=== PATIENT | female | born 1955 | race Caucasian/White ===

== ENCOUNTER 2018-07-18 10:00 | Outpatient (RCR) | payer MEDICARE, MEDICAID, SELFPAY | END 2018-07-18 10:01 | disposition home or self-care (01) | LOC: PT 10:00 | PROVIDERS: Visit Provider Nurse Practitioner Family | DX: L97.821 Non-pressure chronic ulcer of other part of left lower leg limited to breakdown of skin (principal); L97.811 Non-pressure chronic ulcer of other part of right lower leg limited to breakdown of skin | CPT/HCPCS: 97162 ==

== ENCOUNTER 2019-04-05 15:00 | Outpatient (RCR) | payer MEDICARE, MEDICAID, SELFPAY | END 2019-04-05 15:05 | disposition home or self-care (01) | LOC: PT 15:00 | PROVIDERS: Visit Provider Nurse Practitioner Family | DX: L97.221 Non-pressure chronic ulcer of left calf limited to breakdown of skin (principal); L97.222 Non-pressure chronic ulcer of left calf with fat layer exposed; E08.628 Diabetes mellitus due to underlying condition with other skin complications | CPT/HCPCS: 29580; 97161; 97597; 97598 ==

== ENCOUNTER → 2020-04-26 09:37 | Outpatient (CLI) | payer MEDICARE, MEDICAID, SELFPAY ==
[2020-04-26 11:45] LABS: Coronavirus 19 IgG Antibody Negative (Negative); Coronavirus 19 IgM Antibody Negative (Negative)
== END ==
PROVIDERS: Visit Provider Internal Medicine Gastroenterology
DX: Z01.818 Encounter for other preprocedural examination (principal)
CPT/HCPCS: 36415; 86328

== ENCOUNTER 2020-04-29 09:48 | Day surgery (SDC) | payer MEDICARE, MEDICAID, SELFPAY ==
[2020-04-24 11:10] VITALS: BMI 57.1
[2020-04-29 10:43] VITALS: BP 147/65; PULSE 67; RESP 18; TEMP 36.5; O2SAT 97
[2020-04-29 10:53] LABS: POC Glucose,Bedside 192 (70-110)
[2020-04-29 11:50] VITALS: O2SAT 97
--- NOTE | 2020-04-29 11:58 | P.PN_ITS ---
[facility] Anesthesia Checklist - Structural Data Admitted From: Home Planned Operative Procedure/s: colonoscopy Consent for Planned Operative Procedure(s) Verified: Yes - Airway Assessment C-Spine Mobility Assessed: Yes TMJ Mobility Assessed: Yes Dentition: Poor Dentition - Neurological Assessment Level of Consciousness: Awake, Alert, Appropriate - Anesthesia Plan Anesthesia Risk discussed: Yes Anesthesia Plan: Verified ASA Class: III Anesthesia Type: MAC [facility] History I have reviewed the patient's past medical history: Yes Medical History: Reports:: Cancer (urterine), Diabetes Mellitus Type 2 Denies:: Diabetes Mellitus Type 1, Internal Pacemaker, MRSA, Seizures *Have you ever received a pneumonia vaccine?: Yes *Have you received a flu vaccine this season?: Yes Anesthesia experience/problems:: none Other Surgeries: No: Pacemaker Amputation: No Fractures: No - *Social History Alcohol Intake: never Substance Use Type: denies use *Occupational Status:: retired Housing: house *Travel in the last 8 weeks: None Family Hx:: No significant family history
--- NOTE | 2020-04-29 12:15 | P.PCN_ITS ---
[facility] Procedure Note Procedure Note:: Colonoscopy Procedure Report: Colonoscopy Endoscopist: Kemar Cobb II, MD Referring physician: LORAINE Paniagua Date of Procedure: April 29, 2020 Equipment: Olympus 180 variable stiffness pediatric colonoscope Sedation: MAC sedation Indication: Mrs. Kim is a 65-year-old female who is here for diagnostic colonoscopy secondary to a positive Cologuard test. The patient does state that she had a normal colonoscopy within the last couple of years at [facility] (Dr. Lalo Tafoya). The patient reports no rectal bleeding or melena. She reports no abdominal pain, weight loss, change in her bowel habits or family history of colon cancer. Procedure: Prior to the procedure, a history and physical exam was performed, and patient's medications and allergies were reviewed. The risks, benefits and alternatives of the sedation and procedure were discussed with the patient. All questions were answered and informed consent was obtained. The patient was brought to the procedure room. Patient identification and proposed procedure were verified by the physician and the nurse. The patient was placed in a left lateral decubitus position and the scope was passed under direct vision. Throughout the procedure, the patient's blood pressure, pulse, and oxygen saturations were m onitored continuously. The colonoscopy was accomplished without difficulty. The patient tolerated the procedure well. Findings: On digital rectal examination there was normal rectal tone. There were no external hemorrhoids. The colonoscope was introduced through the anal canal to the rectum and advanced to the cecum. The ileocecal valve and appendiceal orifice were identified. The scope was advanced a short distance into the ileum which appeared grossly normal. The scope was then withdrawn into the colon. The cecum, ascending and transverse colon and mucosa were grossly normal. There were scattered diverticuli throughout the descending and sigmoid colon (LEFT colon). The rectum itself was normal. Upon retroflexion within the rectum there were grade 1 internal hemorrhoids. The preparation was excellent throughout with [place] Preparation Score of 9. The cecal time was 10 minutes. Impression: 1. Left-sided diverticulosis 2. Grade 1 internal hemorrhoids Plan: There was no etiology or explanation for positive Cologuard test. This was possibly a false positive test. The patient has no constitutional symptoms. The patient will not require screening/surveillance colonoscopy again for 10 years by ACS guidelines. I would encourage bulk fiber supplementation on a long-term daily maintenance basis.
[2020-04-29 12:20] VITALS: BP 117/67; PULSE 58; RESP 16; TEMP 36.2; O2SAT 93
[2020-04-29 12:30] VITALS: BP 107/60; PULSE 55; RESP 16; O2SAT 97
[2020-04-29 12:40] VITALS: BP 122/63; PULSE 58; RESP 16; O2SAT 99
[2020-04-29 12:50] VITALS: BP 128/88; PULSE 53; RESP 16; TEMP 36.3; O2SAT 98
== END 2020-04-29 12:57 | disposition home or self-care (01) ==
LOC: OUTP 09:52
PROVIDERS: PCP Nurse Practitioner Family; Visit Provider Internal Medicine Gastroenterology
PROC: 0DJD8ZZ Inspection of Lower Intestinal Tract, Via Natural or Artificial Opening Endoscopic (ICD-10-PCS; CPT 45378; principal; 2020-04-29 11:00)
DX: K57.30 Diverticulosis of large intestine without perforation or abscess without bleeding (principal); K64.0 First degree hemorrhoids; I10 Essential (primary) hypertension; E78.5 Hyperlipidemia, unspecified; G47.33 Obstructive sleep apnea (adult) (pediatric); F32.9 Major depressive disorder, single episode, unspecified; E11.9 Type 2 diabetes mellitus without complications; K21.9 Gastro-esophageal reflux disease without esophagitis; Z90.710 Acquired absence of both cervix and uterus; Z79.82 Long term (current) use of aspirin; Z79.4 Long term (current) use of insulin; Z79.899 Other long term (current) drug therapy
CPT/HCPCS: 45378; 82962

== ENCOUNTER 2021-05-15 15:30 | Outpatient (RCR) | payer MEDICARE, MEDICAID, SELFPAY | END 2021-05-15 15:35 | disposition home or self-care (01) | LOC: PT 15:30 | PROVIDERS: PCP Nurse Practitioner Family; Visit Provider Nurse Practitioner Family | DX: L03.116 Cellulitis of left lower limb (principal); L03.115 Cellulitis of right lower limb | CPT/HCPCS: 29580; 97162; 97597 ==

== ENCOUNTER 2021-08-15 22:28 | Emergency (ER) | payer MEDICARE, MEDICAID, SELFPAY ==
[2021-08-15 22:29] VITALS: BP 133/50; PULSE 71; RESP 16; TEMP 36.9; O2SAT 94; BMI 57.4
[2021-08-15 22:34] VITALS: BP 133/58; PULSE 81; O2SAT 95
[2021-08-15 22:58] LABS: Basophils # 0.1 K/mm3 (0-0.2); Basophils % 0.7 % (0.1-2.0); Eosinophils # 0.4 K/mm3 (0.0-0.4); Eosinophils % 2.7 % (0.1-12.0); Hematocrit 34.5 % (37.0-47.0); Hemoglobin 11.1 g/dL (12.2-16.2); Lymphocytes % 23.4 % (10-50); Mean Corpuscular Hemoglobin 26.3 pg (27.0-31.2); Mean Platelet Volume 8.9 fl (7.4-10.4); Monocytes # 0.6 K/mm3 (0.1-1.0); Monocytes % 4.5 % (1.7-9.3); Neutrophils # 8.9 K/mm3 (1.8-7.8); Neutrophils % 68.7 % (37.0-80.0); Platelet Count 390 K/mm3 (142-424); Red Blood Count 4.21 M/mm3 (4.20-5.40); Red Cell Distribution Width 16.4 % (11.5-17.5); White Blood Count 12.9 K/mm3 (4.8-10.8)
[2021-08-15 23:05] LABS: Alanine Aminotransferase 16 U/L (12-78); Albumin Level 3.9 g/dl (3.5-5.0); Albumin/Globulin Ratio 1.1 (1.1-1.8); Alkaline Phosphatase 88 U/L (38-126); Amylase 68 U/L (30-110); Anion Gap 14.7 mEq/L (5-15); Aspartate Amino Transferase 30 U/L (14-36); Bilirubin,Total 0.2 mg/dl (0.2-1.3); Blood Urea Nitrogen 27 mg/dl (7-17); Calcium 8.7 mg/dl (8.4-10.2); Carbon Dioxide 22 mmol/L (22.0-30.0); Chloride 97 mmol/L (98-107); Creatinine Clearance Estimated 29 mL/min (50-200); Estimated Glomerular Filt Rate 30 ml/min (>60); GFR (African American) 36 ML/MIN (>60); Globulin 3.4 g/dL (1.3-3.2); Glucose 77 mg/dl (74-100); Lipase 73 U/L (23-300); Potassium 3.7 mmoL/L (3.5-5.1); Sodium 130 mmol/L (136-145); Total Protein,Serum 7.3 g/dl (6.3-8.2)
[2021-08-15 23:11] LABS: C-Reactive Protein 40.3 mg/L (0-4)
[2021-08-15 23:24] LABS: Procalcitonin 0.077 ng/mL (0.0-2.0)
[2021-08-15 23:27] LABS: Erythrocyte Sedimentation Rate 65 mm/hr (0-30)
--- NOTE | 2021-08-15 23:44 | HMH.EDWEAK ---
ED Disposition Clinical Impression: Gastroenteritis, Renal insufficiency Disposition: Home, Self-Care Condition on Discharge: Good Instructions: DI for Vomiting -- Adult Additional Instructions: fluids and hold lasix/k and lisinopril at this time till bette fluids Referrals: May Deal [Primary Care Provider] - - Critical Care Critical Care Time: No Attestation: On 08/15/21, the high probability of a clinically significant, sudden or life threatening deterioration of the following system(s) required my full and direct attention, intervention and personal management. The time I documented below is in addition to time spent performing reported procedures but includes the following listed in this critical care notation. Medical Decision Making - Medical Records Medical records reviewed: Yes: I reviewed the patient's medical records. - Jose C Inquiry Pt receiving controlled substance: No Vital Signs: 08/15/21 22:29 08/15/21 22:34 Temperature 98.4 F Temperature Source Oral Pulse Rate 81 Pulse Rate [Right] 71 Respiratory Rate 16 Blood Pressure 133/58 L Blood Pressure [Right Arm] 133/50 L Blood Pressure Mean [Right Arm] 77 02 Sat by Pulse Oximetry 94 L 95 - Lab Data Lab results reviewed: Yes: I reviewed the patient's lab results. Lab Results 08/15/21 00:00: Urine Color Yellow, Urine Appearance Sl cloudy, Urine pH 5.5, Ur Specific [place] 1.020, Urine Protein Negative, Urine Glucose (UA) Negative, Urine Ketones Negative, Urine Blood Negative, Urine Nitrate Negative, Urine Bilirubin Negative, Urine Urobilinogen 0.2, Ur Leukocyte Esterase Negative, Urine RBC Occasional, Urine WBC 5-10, Ur Squamous Epith Cells None, Urine Bacteria Trace 08/15/21 22:50: WBC 12.9 H, RBC 4.21, Hgb 11.1 L, Hct 34.5 L, MCV 82.0, MCH 26.3 L, MCHC 32.0, RDW 16.4, Plt Count 390, MPV 8.9, Neut % (Auto) 68.7, Lymph % (Auto) 23.4, [place] % (Auto) 4.5, Eos % (Auto) 2.7, Baso % (Auto) 0.7, Neut # (Auto) 8.9 H, Lymph # (Auto) 3.0, [place] # (Auto) 0.6, Eos # (Auto) 0.4, Baso # (Auto) 0.1, ESR 65 H 08/15/21 22:50: Sodium 130 L, Potassium 3.7, Chloride 97 L, Carbon Dioxide 22, Anion Gap 14.7, BUN 27 H, Creatinine 1.70 H, Estimated Creat Clear 29, Estimated GFR 30 L, Est GFR ( Amer) 36 L, Glucose 77, Calcium 8.7, Total Bilirubin 0.2, AST 30, ALT 16, Alkaline Phosphatase 88, C-Reactive Protein 40.3 H, Total Protein 7.3, Albumin 3.9, Globulin 3.4 H, Albumin/Globulin Ratio 1.1, Amylase 68, Procalcitonin 0.077 08/15/21 22:50: Lipase 73 Result diagrams: 08/15/21 22:50 08/15/21 22:50 Orders (Tests/Meds): ED MEDICATIONS Generic Name Dose Route Start Last Admin Trade Name Freq PRN Reason Stop Dose Admin Sodium Chloride 1,000 mls @ 999 mls/hr 08/15/21 23:45 08/15/21 23:53 Sod Chlor 0.9% 1000ml Bag IV 08/16/21 00:45 999 mls/hr .Q1H1M TE Administration - Reevaluation(s) Time: 02:10 Reevaluation #1: improved with fluids Medical Decision Narrative: has gastroenteritis which has improved but concerned about urine output - candelaria was placed no urine retention but good u/o with fluids - will ask pt to hold lasix/k and lisinopril till back to baseline Weakness HPI - General Chief complaint: Weakness Stated complaint: Diarrhea,Abd pain.weakness Time Seen by Provider: 08/15/21 23:15 Mode of Arrival: Ambulatory Source of Information: Patient, Medical Record Limitations: No Limitations Description of Symptoms (Recalled from ER Triage Doc. by RN): pt states since wednesday has n/v/d, today is the first day without any of those symptoms but now is weak and unable to urinate - History of Present Illness HPI Narrative: pt with n/v and diarrhea over the last few days reports better today but concerned about dec u/o Complaint: generalized weakness Onset (ago): day(s) Location: generalized Migration: none Severity: moderate Associated symptoms: denies other symptoms - Related Data Home Medications Medication
[2021-08-16 00:05] LABS: Microscopic, Urine URINE MICROSCOPIC (MICROSCOPIC)
[2021-08-16 00:12] LABS: Appearance,Urine SL CLOUDY (Clear); Bilirubin,Urine Negative (Negative); Blood, Urine Negative (Negative); Color,Urine YELLOW (Yellow); Glucose,Urine (UA) Negative (Negative); Ketones,Urine Negative (Negative); Leukocyte Esterase,Urine Negative (Negative); Nitrate,Urine Negative (Negative); PH,Urine 5.5 (5.0-8.5); Protein,Urine Negative (Negative); Urobilinogen,Urine 0.2 EU/dl (0.2)
[2021-08-16 00:16] LABS: Bacteria,Urine Trace /lpf; RBC,Urine Occasional #/hpf (0-3)
[2021-08-16 02:22] VITALS: BP 116/61; PULSE 73; RESP 18; TEMP 37.2; O2SAT 99
== END 2021-08-16 02:29 | disposition home or self-care (01) ==
PROVIDERS: Emergency Provider Emergency Medicine; PCP Nurse Practitioner Family
DX: K52.9 Noninfective gastroenteritis and colitis, unspecified (principal); N28.9 Disorder of kidney and ureter, unspecified; E11.9 Type 2 diabetes mellitus without complications; K21.9 Gastro-esophageal reflux disease without esophagitis; I10 Essential (primary) hypertension; E78.5 Hyperlipidemia, unspecified
CPT/HCPCS: 80053; 81001; 82150; 83690; 84145; 85025; 85651; 86140; 96365; 99283

== ENCOUNTER 2022-01-13 11:54 | Emergency (ER) | payer MEDICARE, MEDICAID, SELFPAY ==
[2022-01-13] VITALS (11 sets, daily range): BP systolic 121–172; BP diastolic 57–85; PULSE 58–72; RESP 12–21; TEMP 36.4; O2SAT 95–98; BMI 53.1
--- NOTE | 2022-01-13 12:05 | ECG_ITS ---
APPROVED REPORT Exam: Resting ECG HR:70 bpm ECG Measurements Heart Rate 70 AXES QRSd 94 QRS 40 QT 400 T 0 QTc 420 Conclusion ATRIAL FIBRILLATION LOW QRS VOLTAGE IN PRECORDIAL LEADS [QRS DEFLECTION < 1.0 mV IN CHEST LEADS] NONSPECIFIC ST & T-WAVE ABNORMALITY ABNORMAL RHYTHM ECG UNCONFIRMED REPORT Electronically signed by : Hernan Muniz MD 01/14/2022 18:03:31
--- NOTE | 2022-01-13 12:22 | CT_ITS ---
FINAL REPORT CLINICAL HISTORY: rt leg weakness, blurry viz, confudsion FINDINGS: Axial images of the head were obtained without contrast. Coronal reformatted images were also obtained.This study was performed with techniques to keep radiation doses as low as reasonably achievable (ALARA). Individualized dose reduction techniques using automated exposure control or adjustment of mA and/or kV according to the patient''s size were employed. There is a 17 mm left thalamic hemorrhage with mild surrounding edema. There is 4 mm onwq-pe-xglur shift. Periventricular low-attenuation areas are seen consistent with mild chronic ischemic changes. No skull abnormality is seen on the bone window images. IMPRESSION: 17 mm left thalamic hemorrhage with mild surrounding edema and 4 mm of hvke-hk-oijmj shift. Dr. Conley was notified of these findings at 1:17 PM on 01/13/2022 Reviewed, Interpreted and Dictated by Mendoza Viveros III, MD Transcribed by Gwen Waekfield Authenticated by Mendoza Viveros III, MD on 01/13/2022 01:41:[address] [facility]
--- NOTE | 2022-01-13 12:25 | HMH.EDNEU ---
ED Disposition Clinical Impression: ICH (intracerebral hemorrhage) Qualifiers: Intracerebral hemorrhage etiology: nontraumatic Cerebral hemorrhage location: other cerebral location Laterality: left Qualified Code(s): I61.8 - Other nontraumatic intracerebral hemorrhage Disposition: Xfer Short-Term Hosp Condition on Discharge: Good Referrals: May Deal [Primary Care Provider] - - Critical Care Critical Care Time: No Attestation: On 01/13/22, the high probability of a clinically significant, sudden or life threatening deterioration of the following system(s) required my full and direct attention, intervention and personal management. The time I documented below is in addition to time spent performing reported procedures but includes the following listed in this critical care notation. Medical Decision Making - Medical Records Medical records reviewed: Yes: I reviewed the patient's medical records. - Jose C Inquiry Pt receiving controlled substance: No Vital Signs: 01/13/22 11:55 01/13/22 12:31 01/13/22 13:00 Temperature 97.5 F L Temperature Source Oral Pulse Rate 67 65 Pulse Rate [Left Radial] 71 Respiratory Rate 20 16 21 Blood Pressure 160/71 H 145/70 H Blood Pressure [Right Arm] 172/79 H Blood Pressure Mean 92 95 Blood Pressure Mean [Right Arm] 110 Blood Pressure Source [Right Arm] Automatic Cuff Blood Pressure Position [Right Arm] Sitting 02 Sat by Pulse Oximetry 97 97 97 Oxygen Delivery Method Room Air 01/13/22 14:01 01/13/22 14:30 01/13/22 15:00 Temperature Temperature Source Pulse Rate 72 62 63 Pulse Rate [Left Radial] Respiratory Rate 16 18 18 Blood Pressure 121/63 134/57 L 135/85 Blood Pressure [Right Arm] Blood Pressure Mean 101 82 101 Blood Pressure Mean [Right Arm] Blood Pressure Source [Right Arm] Blood Pressure Position [Right Arm] 02 Sat by Pulse Oximetry 95 95 96 Oxygen Delivery Method Room Air Room Air Room Air 01/13/22 16:31 01/13/22 17:15 01/13/22 17:57 Temperature Temperature Source Pulse Rate 61 58 L 62 Pulse Rate [Left Radial] Respiratory Rate 21 12 18 Blood Pressure 136/71 136/81 150/70 H Blood Pressure [Right Arm] Blood Pressure Mean 92 96 Blood Pressure Mean [Right Arm] Blood Pressure Source [Right Arm] Blood Pressure Position [Right Arm] 02 Sat by Pulse Oximetry 96 97 96 Oxygen Delivery Method 01/13/22 18:02 Temperature Temperature Source Pulse Rate 64 Pulse Rate [Left Radial] Respiratory Rate 18 Blood Pressure 153/66 H Blood Pressure [Right Arm] Blood Pressure Mean 95 Blood Pressure Mean [Right Arm] Blood Pressure Source [Right Arm] Blood Pressure Position [Right Arm] 02 Sat by Pulse Oximetry 98 Oxygen Delivery Method - Lab Data Lab Results 01/13/22 12:15: WBC 10.5, RBC 4.29, Hgb 10.6 L, Hct 34.3 L, MCV 80.0 L, MCH 24.7 L, MCHC 30.9 L, RDW 16.9, Plt Count 438 H, MPV 9.2, Neut % (Auto) 69.8, Lymph % (Auto) 19.0, [place] % (Auto) 5.9, Eos % (Auto) 3.8, Baso % (Auto) 1.5, Neut # (Auto) 7.3, Lymph # (Auto) 2.0, [place] # (Auto) 0.6, Eos # (Auto) 0.4, Baso # (Auto) 0.2 01/13/22 12:15: Sodium 141, Potassium 3.4 L, Chloride 104, Carbon Dioxide 28, Anion Gap 12.4, BUN 17, Creatinine 0.80, Estimated GFR 72, Est GFR ( Amer) 87, Glucose 48 L, Calcium 9.3, Total Bilirubin 0.7, AST 44 H, ALT 25, Alkaline Phosphatase 68, Total Protein 7.8, Albumin 4.1, Globulin 3.7 H, Albumin/Globulin Ratio 1.1 01/13/22 13:03: POC Glucose 107 01/13/22 14:55: SARS-CoV-2 (PCR) Not detected, Influenza A Untype (PCR) Not detected, Influenza Type B (PCR) Not detected 01/13/22 15:19: Urine Color Yellow, Urine Appearance Sl cloudy, Urine pH 6.0, Ur Specific [place] 1.010, Urine Protein Negative, Urine Glucose (UA) Negative, Urine Ketones Negative, Urine Blood Negative, Urine Nitrate Negative, Urine Bilirubin Negative, Urine Urobilinogen 0.2, Ur Leukocyte Esterase Negative, Urine RBC Occasional, Urine WBC 5-10, Ur [place]
[2022-01-13 12:32] LABS: Basophils # 0.2 K/mm3 (0-0.2); Basophils % 1.5 % (0.1-2.0); Eosinophils # 0.4 K/mm3 (0.0-0.4); Eosinophils % 3.8 % (0.1-12.0); Hematocrit 34.3 % (37.0-47.0); Hemoglobin 10.6 g/dL (12.2-16.2); Mean Corpuscular HGB Conc 30.9 g/dL (31.8-35.4); Mean Corpuscular Hemoglobin 24.7 pg (27.0-31.2); Mean Platelet Volume 9.2 fl (7.4-10.4); Monocytes # 0.6 K/mm3 (0.1-1.0); Monocytes % 5.9 % (1.7-9.3); Neutrophils # 7.3 K/mm3 (1.8-7.8); Neutrophils % 69.8 % (37.0-80.0); Platelet Count 438 K/mm3 (142-424); Red Blood Count 4.29 M/mm3 (4.20-5.40); Red Cell Distribution Width 16.9 % (11.5-17.5); White Blood Count 10.5 K/mm3 (4.8-10.8)
[2022-01-13 12:43] LABS: Alanine Aminotransferase 25 U/L (12-78); Albumin Level 4.1 g/dl (3.5-5.0); Albumin/Globulin Ratio 1.1 (1.1-1.8); Alkaline Phosphatase 68 U/L (38-126); Anion Gap 12.4 mEq/L (5-15); Aspartate Amino Transferase 44 U/L (14-36); Bilirubin,Total 0.7 mg/dl (0.2-1.3); Blood Urea Nitrogen 17 mg/dl (7-17); Calcium 9.3 mg/dl (8.4-10.2); Carbon Dioxide 28 mmol/L (22.0-30.0); Chloride 104 mmol/L (98-107); Estimated Glomerular Filt Rate 72 ml/min (>60); GFR (African American) 87 ML/MIN (>60); Globulin 3.7 g/dL (1.3-3.2); Potassium 3.4 mmoL/L (3.5-5.1); Sodium 141 mmol/L (136-145); Total Protein,Serum 7.8 g/dl (6.3-8.2)
--- NOTE | 2022-01-13 13:03 | PC.NURSE ---
spoke with MRI they are gonna come after her
--- NOTE | 2022-01-13 13:04 | PC.NURSE ---
repeat fsbs 107
[2022-01-13 13:09] LABS: Glucose 48 mg/dl (74-100)
[2022-01-13 13:10] LABS: POC Glucose,Bedside 107 (70-110)
--- NOTE | 2022-01-13 13:11 | PC.NURSE ---
Pt given PB and crackers with DtMariela
--- NOTE | 2022-01-13 13:15 | PC.NURSE ---
pt to MRI via wheelchair
--- NOTE | 2022-01-13 13:17 | PC.NURSE ---
ER speaking with radiologist at this time
--- NOTE | 2022-01-13 13:22 | PC.NURSE ---
per ER MD request contacting MRI area asked them to bring pt back down and not do MRI r/t pt CT finding, spoke with Felicita
--- NOTE | 2022-01-13 13:22 | PC.NURSE ---
contacting [facility]
--- NOTE | 2022-01-13 13:26 | PC.NURSE ---
Dr Conley speaking with Dr [facility]
--- NOTE | 2022-01-13 13:50 | PC.NURSE ---
ISA NICOLE reports [facility] declined to accept pt in transfer.
--- NOTE | 2022-01-13 14:03 | PC.NURSE ---
calling [facility] for transfer
--- NOTE | 2022-01-13 14:05 | PC.NURSE ---
Dr Conley speaking with stroke navigator.
--- NOTE | 2022-01-13 14:17 | PC.NURSE ---
Dr Shetty to call back from [facility]
--- NOTE | 2022-01-13 14:42 | MR_ITS ---
FINAL REPORT CLINICAL HISTORY: rt leg weakness, confusion, blurry viz FINDINGS: Multiple projection images of the brain arterial vasculature were obtained without contrast. The raw data images were also reviewed. The distal internal carotid, distal vertebral and basilar arteries have an unremarkable appearance without evidence of significant stenosis or occlusion. The proximal anterior, middle and posterior cerebral arteries have an unremarkable appearance. There is no evidence of significant stenosis or major branch occlusion. No aneurysm or vascular malformation is identified. IMPRESSION: Unremarkable MR angiogram of the head. Reviewed, Interpreted and Dictated by Mendoza Vvieros III, MD Transcribed by Gwen Wakefield Authenticated by Mendoza Viveros III, MD on 01/13/2022 04:41:24 PM [facility]
--- NOTE | 2022-01-13 14:49 | PC.NURSE ---
speaking with [facility]
[2022-01-13 14:57] LABS: Coronavirus 19, PCR Not Detected (NotDetected); Influenza A, PCR Not Detected (NotDetected); Influenza B, PCR Not Detected (NotDetected)
--- NOTE | 2022-01-13 15:02 | PC.NURSE ---
speaking to [facility]
--- NOTE | 2022-01-13 15:14 | PC.NURSE ---
pt to MRI via wheelchair at this time
--- NOTE | 2022-01-13 15:21 | MR_ITS ---
FINAL REPORT CLINICAL HISTORY: rt leg weakness, confusion, blurry viz COMPARISON: CT from the same day FINDINGS: Multiplanar MR imaging of the brain was performed without contrast. Motion on some of the images decreases exam sensitivity. There is mild age-appropriate atrophy. There are multiple foci of increased T2 signal in the cerebral white matter that have a nonspecific appearance but likely represent moderate chronic ischemic/gliotic changes. There is enlargement of the left thalamus up to 3.0 x 2.2 cm with increased T2 signal within it. It is unclear if this represents edema or a mass. There is a central area of acute hemorrhage within this focus. No abnormal ventricular dilatation is identified. No abnormal extra-axial fluid collection is seen. The posterior fossa and brainstem are unremarkable. Normal major vessel vascular flow voids are seen. IMPRESSION: Enlargement of the left thalamus could represent edema or a mass . This contains a central area of acute hemorrhage. Follow-up MRI without and with contrast may be helpful. Age-appropriate atrophy and moderate chronic ischemic/gliotic changes. Reviewed, Interpreted and Dictated by Mendoza Viveros III, MD Transcribed by Moses Mcleod Authenticated by Mendoza Viveros III, MD on 01/13/2022 04:55:09 PM [facility]
[2022-01-13 15:25] LABS: Microscopic, Urine URINE MICROSCOPIC (MICROSCOPIC)
--- NOTE | 2022-01-13 15:27 | PC.NURSE ---
spoke with [facility] at this time, requesting a face sheet, states they will work on a bed for pt.
--- NOTE | 2022-01-13 15:32 | PC.NURSE ---
contacted pharmacy to have them mix nicardipine drip for pt, ER MD has parameters to keep sbp less than 140, will have drip ready if need to start it on pt.
[2022-01-13 15:39] LABS: Appearance,Urine SL CLOUDY (Clear); Bilirubin,Urine Negative (Negative); Blood, Urine Negative (Negative); Color,Urine YELLOW (Yellow); Glucose,Urine (UA) Negative (Negative); Ketones,Urine Negative (Negative); Leukocyte Esterase,Urine Negative (Negative); Nitrate,Urine Negative (Negative); Protein,Urine Negative (Negative); Urobilinogen,Urine 0.2 EU/dl (0.2)
--- NOTE | 2022-01-13 16:21 | PC.NURSE ---
patient returned from MRI
--- NOTE | 2022-01-13 16:35 | PC.NURSE ---
Called for pt meal tray
[2022-01-13 16:40] LABS: POC Glucose,Bedside 104 (70-110)
--- NOTE | 2022-01-13 17:09 | PC.NURSE ---
[facility] called advising they still have no rooms at this time.
[2022-01-13 17:12] LABS: Bacteria,Urine 4+ /lpf; RBC,Urine Occasional #/hpf (0-3)
--- NOTE | 2022-01-13 17:16 | PC.NURSE ---
notified ER pt MRI brain has been read and is in the system.
--- NOTE | 2022-01-13 17:16 | PC.NURSE ---
PT resting in bed, eating supper tray at this time. No issues
--- NOTE | 2022-01-13 18:47 | PC.NURSE ---
[facility] called with a bed, they are busy with a code and will do report at shift change
--- NOTE | 2022-01-13 18:47 | PC.NURSE ---
Attempted to call report on pt, nurse at [facility] states they are trying to catch up from a prior code at their facility and wants to return a call back to them once shift nurse manager gets there
[2022-01-13 18:57] LABS: POC Glucose,Bedside 176 (70-110)
--- NOTE | 2022-01-13 19:07 | PC.NURSE ---
CAlled back to give report, Zoila states that the HS said to hold off for 30mins/1hour for this pt a bed to open due to unseen circumstances that happened in their facility.
--- NOTE | 2022-01-13 19:27 | PC.NURSE ---
Updated family and pt and poc
--- NOTE | 2022-01-13 20:02 | PC.NURSE ---
[facility] NOTIFIED OF PATIENT READY FOR TRANSFER
== END 2022-01-13 20:24 | disposition short-term general hospital (02) ==
PROVIDERS: Emergency Provider Emergency Medicine; PCP Nurse Practitioner Family
DX: I61.8 Other nontraumatic intracerebral hemorrhage (principal); A49.8 Other bacterial infections of unspecified site; H53.8 Other visual disturbances; R41.0 Disorientation, unspecified; Z20.822 Contact with and (suspected) exposure to COVID-19; I10 Essential (primary) hypertension; K21.9 Gastro-esophageal reflux disease without esophagitis; E78.5 Hyperlipidemia, unspecified; E11.9 Type 2 diabetes mellitus without complications; F32.A Depression, unspecified; F41.9 Anxiety disorder, unspecified; Z79.1 Long term (current) use of non-steroidal anti-inflammatories (NSAID); Z79.4 Long term (current) use of insulin; Z79.82 Long term (current) use of aspirin; Z79.899 Other long term (current) drug therapy; Z88.0 Allergy status to penicillin; R53.1 Weakness; Z85.9 Personal history of malignant neoplasm, unspecified
CPT/HCPCS: 70450; 70544; 70551; 80053; 81001; 82962; 85025; 87086; 87088; 87186; 93005; 96365; 96374; 99285; C9803; U0003; U0005

== ENCOUNTER 2022-05-23 21:48 | Inpatient (IN) | payer MEDICARE, MEDICAID, SELFPAY ==
[2022-05-23 21:46] VITALS: BP 125/56; PULSE 96; RESP 22; TEMP 36.6; O2SAT 95; BMI 55.7
[2022-05-23 23:00] VITALS: PULSE 97; O2SAT 94
--- NOTE | 2022-05-23 23:10 | XR_ITS ---
PROCEDURE INFORMATION: Exam: XR Pelvis Exam date and time: 05/23/2022 11:43 PM Age: 67 years old Clinical indication: Injury or trauma; Fall; Blunt trauma (contusions or hematomas); Bilateral; Pelvic region TECHNIQUE: Imaging protocol: Radiologic exam of the pelvis. Views: 1 or 2 view. Total images: 2 COMPARISON: No relevant prior studies available. FINDINGS: Bones/joints: Unremarkable. No acute fracture. Soft tissues: Unremarkable. Vasculature: Atherosclerosis is evident. Other findings: Incidental pelvic phlebolith formation. IMPRESSION: No acute fracture identified.
--- NOTE | 2022-05-23 23:10 | CT_ITS ---
PROCEDURE INFORMATION: Exam: CT Abdomen And Pelvis Without Contrast Exam date and time: 05/24/2022 12:03 AM Age: 67 years old Clinical indication: Abdominal pain; Generalized; Additional info: Fall 1 mn ago, back abd pain TECHNIQUE: Imaging protocol: Computed tomography of the abdomen and pelvis without contrast. Total images: 224 Radiation optimization: All CT scans at this facility use at least one of these dose optimization techniques: automated exposure control; mA and/or kV adjustment per patient size (includes targeted exams where dose is matched to clinical indication); or iterative reconstruction. COMPARISON: CR XR PELVIS 1-2V 05/23/2022 11:43 PM FINDINGS: Limitations: Quality of examination is limited by body habitus. Streak artifact related to the positioning of the patient's arms. Lungs: Bibasilar mosaic attenuation of the pulmonary parenchyma, suggesting small airway infectious/inflammatory process. Coronary arteries: Calcific coronary artery disease is evident. Liver: Suspect hepatic steatosis. Hepatomegaly at 22 cm craniocaudal dimension. Gallbladder and bile ducts: Suspect prior cholecystectomy. Pancreas: Normal. No ductal dilation. Spleen: Normal. No splenomegaly. Adrenal glands: There is multilobulated benign adenomatous enlargement of the adrenal glands, no further followup recommended. Kidneys and ureters: Normal. No hydronephrosis. Stomach and bowel: Unremarkable. No obstruction. No mucosal thickening. Appendix: Normal appendix. Intraperitoneal space: Unremarkable. No free air. No significant fluid collection. Vasculature: Unremarkable. No abdominal aortic aneurysm. Lymph nodes: Unremarkable. No enlarged lymph nodes. Urinary bladder: Unremarkable as visualized. Reproductive: Unremarkable as visualized. Bones/joints: Moderate spinal degenerative changes. Facet joint degenerative changes are present. Multifocal neural foraminal stenosis, due to degeneration. Soft tissues: Soft tissue prominence adjacent to the pubic symphysis with a small amount of gas in this region, presumably advanced degeneration with infection conceivable but felt much less likely. IMPRESSION: 1. Soft tissue prominence adjacent to the pubic symphysis with a small amount of gas in this region, presumably advanced degeneration with infection conceivable but felt much less likely. Recommend clinical correlation. 2. No acute intra-abdominal process identified. 3. Bibasilar mosaic attenuation of the pulmonary parenchyma, suggesting small airway infectious/inflammatory process. 4. No ureteral stone or hydronephrosis. 5. Normal appendix.
--- NOTE | 2022-05-23 23:10 | XR_ITS ---
PROCEDURE INFORMATION: Exam: XR Chest Exam date and time: 05/23/2022 11:44 PM Age: 67 years old Clinical indication: Sternal or substernal pain; Additional info: Fall TECHNIQUE: Imaging protocol: Radiologic exam of the chest. Views: 4 or more views. Total images: 593 COMPARISON: No relevant prior studies available. FINDINGS: Lungs: Benign granulomatous disease of the lung is noted. Trace pulmonary vascular congestion. Pleural spaces: Unremarkable. No pleural effusion. No pneumothorax. Heart/Mediastinum: Unremarkable. No cardiomegaly. Diaphragm: There is nonspecific elevation of the right hemidiaphragm. Bones/joints: Questionable oblique lucency of the lateral right 10th rib, potentially a minimally displaced acute fracture. IMPRESSION: 1. Trace pulmonary vascular congestion. 2. Questionable oblique lucency of the lateral right 10th rib, potentially a minimally displaced acute fracture. Recommend correlation for focal tenderness.
--- NOTE | 2022-05-23 23:10 | CT_ITS ---
PROCEDURE INFORMATION: Exam: CT Lumbar Spine Without Contrast Exam date and time: 05/23/2022 11:55 PM Age: 67 years old Clinical indication: Injury or trauma; Fall; Sprain or strain, lumbar ligaments; Additional info: Fall 1 mn ago, back abd pain TECHNIQUE: Imaging protocol: Computed tomography of the lumbar spine without contrast. Total images: 2 Radiation optimization: All CT scans at this facility use at least one of these dose optimization techniques: automated exposure control; mA and/or kV adjustment per patient size (includes targeted exams where dose is matched to clinical indication); or iterative reconstruction. COMPARISON: CR XR PELVIS 1-2V 05/23/2022 11:43 PM FINDINGS: Bones/joints: Facet joint degenerative changes are present. Osseous demineralization is evident. Discs/Spinal canal/Neural foramina: Multifocal neural foraminal stenosis, due to degeneration. Vasculature: Atherosclerosis is evident. Soft tissues: Unremarkable. IMPRESSION: No acute lumbar spine fracture.
[2022-05-23 23:18] VITALS: BP 153/79; PULSE 99; O2SAT 94
--- NOTE | 2022-05-23 23:21 | HMH.EDGENADL ---
ED Disposition Clinical Impression: Type 2 diabetes mellitus with diabetic neuropathy, with long-term current use of insulin, Severe sepsis with acute organ dysfunction, Renal insufficiency, Gait abnormality UTI (urinary tract infection) Qualifiers: Urinary tract infection type: site unspecified Hematuria presence: without hematuria Qualified Code(s): N39.0 - Urinary tract infection, site not specified Acute knee pain Qualifiers: Laterality: right Qualified Code(s): M25.561 - Pain in right knee Obesity Qualifiers: Obesity type: due to excess calories Obesity classification: adult class 3 (BMI >= 40) Serious obesity comorbidity presence: with serious comorbidity Body mass index: BMI 50.0-59.9 Qualified Code(s): E66.01 - Morbid (severe) obesity due to excess calories; Z68.43 - Body mass index [BMI] 50.0-59.9, adult A-fib Qualifiers: Atrial fibrillation type: unspecified chronic Qualified Code(s): I48.20 - Chronic atrial fibrillation, unspecified Anemia Qualifiers: Anemia type: unspecified type Qualified Code(s): D64.9 - Anemia, unspecified Cellulitis Qualifiers: Site of cellulitis: extremity Site of cellulitis of extremity: lower extremity Laterality: unspecified laterality Qualified Code(s): L03.119 - Cellulitis of unspecified part of limb Disposition: Admitted as Observation Condition on Discharge: Fair Referrals: Provider,Referral, [Primary Care Provider] - - Critical Care Critical Care Time: No Attestation: On 05/23/22, the high probability of a clinically significant, sudden or life threatening deterioration of the following system(s) required my full and direct attention, intervention and personal management. The time I documented below is in addition to time spent performing reported procedures but includes the following listed in this critical care notation. Medical Decision Making - Medical Records Medical records reviewed: Yes: I reviewed the patient's medical records. - Jose C Inquiry Pt receiving controlled substance: No Vital Signs: 05/23/22 21:46 05/23/22 23:00 05/23/22 23:18 Temperature 97.9 F Temperature Source Oral Pulse Rate 97 H 99 H Pulse Rate [Right] 96 H Respiratory Rate 22 Blood Pressure 153/79 H Blood Pressure [Right Arm] 125/56 L Blood Pressure Mean Blood Pressure Mean [Right Arm] 79 Blood Pressure Source [Right Arm] Automatic Cuff 02 Sat by Pulse Oximetry 95 94 L 94 L Oxygen Delivery Method Room Air 05/23/22 23:31 05/24/22 00:41 05/24/22 01:01 Temperature Temperature Source Pulse Rate 89 93 H 103 H Pulse Rate [Right] Respiratory Rate Blood Pressure 139/67 134/56 L 154/63 H Blood Pressure [Right Arm] Blood Pressure Mean 96 93 Blood Pressure Mean [Right Arm] Blood Pressure Source [Right Arm] 02 Sat by Pulse Oximetry 95 95 97 Oxygen Delivery Method Room Air Room Air Room Air - Lab Data Lab results reviewed: Yes: I reviewed the patient's lab results. Lab Results 05/23/22 23:00: ESR > 140 H 05/23/22 23:00: C-Reactive Protein 128.8 H, Procalcitonin 0.397 05/23/22 23:00: WBC 14.5 H, RBC 3.96 L, Hgb 9.6 L, Hct 29.9 L, MCV 75.7 L, MCH 24.3 L, MCHC 32.2, RDW 16.0, Plt Count 587 H, MPV 6.9 L, Neut % (Auto) 83.6 H, Lymph % (Auto) 9.6 L, [place] % (Auto) 5.7, Eos % (Auto) 0.6, Baso % (Auto) 0.5, Neut # (Auto) 12.2 H, Lymph # (Auto) 1.4, [place] # (Auto) 0.8, Eos # (Auto) 0.1, Baso # (Auto) 0.1 05/23/22 23:00: Sodium 135 L, Potassium 4.0, Chloride 98, Carbon Dioxide 25, Anion Gap 16.0 H, BUN 20 H, Creatinine 1.10 H, Estimated Creat Clear 42, Estimated GFR 49 L, Est GFR ( Amer) 60, Glucose 143 H, Calcium 9.0, Total Bilirubin 0.2, AST 23, ALT 13, Alkaline Phosphatase 100, Total Protein 7.4, Albumin 3.3 L, Globulin 4.1 H, Albumin/Globulin Ratio 0.8 L, Amylase 45 05/23/22 23:00: Lipase 35 05/23/22 23:00: Troponin I < 0.01, TSH 1.20, Thyroxine (T4) 6.8 05/23/22 23:30: NT-Pro-B Natriuret Pep 2300 H 05/24/22 00:28: Urine Color Yellow
[2022-05-23 23:24] LABS: Basophils # 0.1 K/mm3 (0-0.2); Basophils % 0.5 % (0.1-2.0); Eosinophils # 0.1 K/mm3 (0.0-0.4); Eosinophils % 0.6 % (0.1-12.0); Hemoglobin 9.6 g/dL (12.2-16.2); Lymphocytes # 1.4 K/mm3 (0.7-4.5); Lymphocytes % 9.6 % (10-50); Mean Corpuscular HGB Conc 32.2 g/dL (31.8-35.4); Mean Corpuscular Hemoglobin 24.3 pg (27.0-31.2); Mean Corpuscular Volume 75.7 fl (81-99); Mean Platelet Volume 6.9 fl (7.4-10.4); Monocytes # 0.8 K/mm3 (0.1-1.0); Monocytes % 5.7 % (1.7-9.3); Neutrophils # 12.2 K/mm3 (1.8-7.8); Neutrophils % 83.6 % (37.0-80.0); Platelet Count 587 K/mm3 (142-424); Red Blood Count 3.96 M/mm3 (4.20-5.40); White Blood Count 14.5 K/mm3 (4.8-10.8)
[2022-05-23 23:27] LABS: Hematocrit 29.9 % (37.0-47.0); Lipase 35 U/L (23-300)
[2022-05-23 23:28] LABS: Alanine Aminotransferase 13 U/L (12-78); Albumin Level 3.3 g/dl (3.5-5.0); Albumin/Globulin Ratio 0.8 (1.1-1.8); Alkaline Phosphatase 100 U/L (38-126); Amylase 45 U/L (30-110); Aspartate Amino Transferase 23 U/L (14-36); Bilirubin,Total 0.2 mg/dl (0.2-1.3); Blood Urea Nitrogen 20 mg/dl (7-17); Carbon Dioxide 25 mmol/L (22.0-30.0); Chloride 98 mmol/L (98-107); Creatinine Clearance Estimated 42 mL/min (50-200); Estimated Glomerular Filt Rate 49 ml/min (>60); GFR (African American) 60 ML/MIN (>60); Globulin 4.1 g/dL (1.3-3.2); Glucose 143 mg/dl (74-100); Sodium 135 mmol/L (136-145); Total Protein,Serum 7.4 g/dl (6.3-8.2)
[2022-05-23 23:31] VITALS: BP 139/67; PULSE 89; O2SAT 95
[2022-05-23 23:32] LABS: C-Reactive Protein 128.8 mg/L (0-4)
--- NOTE | 2022-05-23 23:40 | PC.NURSE ---
2 RN's assisting xr tech in radiology for positioning and transfer
[2022-05-23 23:46] LABS: Procalcitonin 0.397 ng/mL (0.0-2.0)
[2022-05-23 23:47] LABS: Erythrocyte Sedimentation Rate > 140 mm/hr (0-30)
--- NOTE | 2022-05-23 23:53 | XR_ITS ---
PROCEDURE INFORMATION: Exam: XR Right Knee Exam date and time: 05/24/2022 12:22 AM Age: 67 years old Clinical indication: Pain; Knee; Right; Additional info: Injury TECHNIQUE: Imaging protocol: Radiologic exam of the Right knee. Views: 1 or 2 views. Total images: 362 COMPARISON: No relevant prior studies available. FINDINGS: Bones/joints: Moderate to severe tricompartmental primary osteoarthritis. Soft tissues: Unremarkable. Vasculature: Atherosclerosis is evident. IMPRESSION: 1. Moderate to severe tricompartmental primary osteoarthritis. 2. No acute fracture identified.
[2022-05-24] VITALS (15 sets, daily range): BP systolic 117–154; BP diastolic 54–64; PULSE 71–103; RESP 16–20; TEMP 36.3–37.9; O2SAT 91–99; BMI 56.4
--- NOTE | 2022-05-24 00:04 | PC.NURSE ---
2 RN's assisted radio tester with transferring pt from ct to stretcher.
[2022-05-24 00:15] LABS: Troponin I < 0.01 ng/ml (0.00-0.034)
[2022-05-24 00:18] LABS: T4 (Thyroxine) 6.8 ug/dl (5.53-11.0)
[2022-05-24 00:34] LABS: Microscopic, Urine URINE MICROSCOPIC (MICROSCOPIC)
[2022-05-24 00:37] LABS: Appearance,Urine CLEAR (Clear); Blood, Urine Negative (Negative); Color,Urine YELLOW (Yellow); Glucose,Urine (UA) Negative (Negative); Ketones,Urine TRACE (Negative); Leukocyte Esterase,Urine TRACE (Negative); Nitrate,Urine Negative (Negative); PH,Urine 5.5 (5.0-8.5); Protein,Urine 1+ (Negative); Specific Gravity, Urine 1.025 (1.005-1.030); Urobilinogen,Urine 0.2 EU/dl (0.2)
--- NOTE | 2022-05-24 00:37 | ECG_ITS ---
APPROVED REPORT Exam: Resting ECG HR:101 bpm ECG Measurements Heart Rate 101 AXES QRSd 92 QRS 38 QT 312 T 32 QTc 370 Conclusion ATRIAL FIBRILLATION WITH RAPID VENTRICULAR RESPONSE NONSPECIFIC ST & T-WAVE ABNORMALITY ABNORMAL RHYTHM ECG UNCONFIRMED REPORT Electronically signed by : Hernan Muniz MD 05/26/2022 21:14:08
[2022-05-24 00:41] LABS: Bilirubin,Urine 1+ (Negative)
[2022-05-24 00:43] LABS: Bacteria,Urine Trace /lpf; Squamous Epithelial Cell,Urine Occasional #/hpf (0-5)
[2022-05-24 00:56] LABS: Coronavirus 19, PCR Not Detected (NotDetected); Influenza A, PCR Not Detected (NotDetected); Influenza B, PCR Not Detected (NotDetected)
[2022-05-24 01:02] LABS: Lactic Acid 2.9 mmol/L (0.7-2.1)
[2022-05-24 01:30] LABS: NT Pro Brain Natriuretic Pep. 2300 pg/mL (0-125)
--- NOTE | 2022-05-24 02:10 | PC.NURSE ---
Dr. Hopson s/w Dr. Mendoza for admission.
--- NOTE | 2022-05-24 02:35 | PC.NURSE ---
House notified for bed assignment
--- NOTE | 2022-05-24 02:36 | PC.NURSE ---
PATIENT ADMITTED TO ROOM [address] BUCIO WITH DX OF UTI, SEVERE SEPSIS WITH ORGAN DYSFUNCTION, CELLULITIS, GAIT ABNORMALITY.
[2022-05-24 02:39] LABS: Hemoglobin A1C 7.9 % (4.0-6.0)
--- NOTE | 2022-05-24 03:12 | PC.NURSE ---
patient up to floor via stretcher @ this time.
[2022-05-24 03:23] LABS: Troponin I < 0.01 ng/ml (0.00-0.034)
--- NOTE | 2022-05-24 04:13 | PC.WOUNDNOTE ---
right lower extremity
--- NOTE | 2022-05-24 04:39 | PC.NURSE ---
pt arrived to floor at 311, has been a fib on telemetry with controlled rate, remains on room air, candelaria in place, blistered areas and redness noted to RLE, picture on chart, LLE scaly and has redness, but less than right leg, buttocks reddened
[2022-05-24 04:52] LABS: Reflex Lactic Add Lactic Reflex
[2022-05-24 05:14] LABS: Basophils # 0.1 K/mm3 (0-0.2); Basophils % 0.4 % (0.1-2.0); Eosinophils # 0.2 K/mm3 (0.0-0.4); Eosinophils % 1.8 % (0.1-12.0); Hematocrit 24.9 % (37.0-47.0); Hemoglobin 8.9 g/dL (12.2-16.2); Lymphocytes % 7.2 % (10-50); MANUAL DIFFERENTIAL MANUAL DIFFERENTIAL (MANUAL DIFF); Mean Corpuscular HGB Conc 35.7 g/dL (31.8-35.4); Mean Corpuscular Hemoglobin 26.6 pg (27.0-31.2); Mean Corpuscular Volume 74.6 fl (81-99); Mean Platelet Volume 6.6 fl (7.4-10.4); Monocytes # 0.4 K/mm3 (0.1-1.0); Monocytes % 2.5 % (1.7-9.3); Neutrophils # 12.1 K/mm3 (1.8-7.8); Neutrophils % 88.2 % (37.0-80.0); Platelet Count 477 K/mm3 (142-424); Red Blood Count 3.34 M/mm3 (4.20-5.40); Red Cell Distribution Width 15.9 % (11.5-17.5); White Blood Count 13.7 K/mm3 (4.8-10.8)
[2022-05-24 05:21] LABS: Chloride 103 mmol/L (98-107); Sodium 133 mmol/L (136-145)
[2022-05-24 05:24] LABS: Blood Urea Nitrogen 17 mg/dl (7-17); Creatinine Clearance Estimated 46 mL/min (50-200); Estimated Glomerular Filt Rate 62 ml/min (>60); GFR (African American) 75 ML/MIN (>60); Lactic Acid Follow Up (RFLX 1) 0.6 mmol/L (0.7-2.1)
[2022-05-24 05:25] LABS: Carbon Dioxide 25 mmol/L (22.0-30.0)
[2022-05-24 05:31] LABS: Calcium 8.7 mg/dl (8.4-10.2); Glucose 139 mg/dl (74-100)
[2022-05-24 05:32] LABS: Anisocytosis 1+; Lymphocytes % 6 % (10-50); Microcytosis 2+; Neutrophils % 86 % (42-76); Platelet Estimate Slight Increase; Poikilocytosis 1+; Rouleaux 4+; Total Cells Counted 100
[2022-05-24 05:38] LABS: Troponin I < 0.01 ng/ml (0.00-0.034)
[2022-05-24 06:47] LABS: POC Glucose,Bedside 157 (70-110)
--- NOTE | 2022-05-24 08:20 | P.CONPHA_ITS ---
[facility] VTE Monitoring - Patient Demographics Admission date: 05/24/22 Report Date: 05/24/22 Time: 08:20 Allergies/Adverse Reactions: Patient Allergies Penicillins Allergy (Verified 05/24/22 03:26) Height: 1.63 m Weight: 149.05 kg Patient Problems: Current Active Problems Renal insufficiency (Acute) UTI (urinary tract infection) (Acute) Severe sepsis with acute organ dysfunction (Acute) Acute knee pain (Acute) Obesity (Acute) A-fib (Acute) Anemia (Acute) Cellulitis (Acute) Gait abnormality (Acute) Type 2 diabetes mellitus with diabetic neuropathy, with long-term current use of insulin (Acute) - VTE Risk Labs: VTE Related Lab Results Hgb 8.9 g/dL (12.2-16.2) L 05/24/22 05:05 Hct 24.9 % (37.0-47.0) L 05/24/22 05:05 Plt Count 477 K/mm3 (142-424) H 05/24/22 05:05 BUN 17 mg/dl (7-17) 05/24/22 05:05 Creatinine 0.90 mg/dl (0.52-1.04) 05/24/22 05:05 Estimated Creat Clear 46 mL/min (50-200) 05/24/22 05:05 Was VTE Risk Assessment Performed: Yes VTE Score: 6 VTE Risk Level: Moderate Risk Clinical Trial Participant: No - Prophylaxis VTE Prophylaxis Ordered?: Yes Types of VTE Prophylaxis: TEDS Knee High, Pharmacological Pharmacologic Type: Other (ELIQUIS)
--- NOTE | 2022-05-24 08:31 | HMH.PHAINT ---
home medication list verified using list from outpatient pharmacy
--- NOTE | 2022-05-24 09:30 | HMH.HP ---
*Admission Date: 05/24/22 *Chief complaint: knee pain; can't walk *History of present illness: Ms. Kim is a 67-year-old white female with insulin-dependent diabetes mellitus, hypertension, obesity, chronic back pain, osteoarthritis and history of CVA. She presented to the ER late last evening after twisting her knee at home and developing pain in the knee and back to the point she was not able to walk. She generally ambulates with a walker. She denies falling. She is known to have severe arthritis of the knees and has been advised on knee replacement. She had a hemorrhagic stroke in December 2021 and spent about a month at [facility] before returning to her own home. She lives alone. She was evaluated in the emergency room with multiple x-rays and CT scan which showed no acute fractures or other acute findings. She was noted to have an elevated white count and pyuria. Because she lives alone and was unable to ambulate she has been admitted for further observation and also to start antibiotics for her apparent urinary tract infection. [facility] History Medical History: Reports:: Atrial Fibrillation, Cancer, Depression, Diabetes Mellitus Type 2, Gastroesophageal Reflux Disease(GERD), Hyperlipidemia, Hypertension Denies:: Diabetes Mellitus Type 1, Internal Pacemaker, MRSA, Seizures *Have you ever received a pneumonia vaccine?: Yes *Have you received a flu vaccine this season?: Yes Other Medical History: Reports: Arthritis Other Surgeries: Yes: Cholecystectomy, Hysterectomy-Total. No: Pacemaker Amputation: No Fractures: No - *Social History Smoking Status: Never smoker Alcohol Intake: never Substance Use Type: denies use *Occupational Status:: retired Housing: house *Travel in the last 8 weeks: None - Psychiatric History Pschychiatric History:: Reports:: Depression Family Hx:: No significant family history Review of Systems - Constitutional Reports excessive sweating, Reports weakness, Denies chills, Denies fever(s), Denies headache(s) - Eyes Denies change in vision - ENT Reports poor balance, Denies difficulty swallowing, Denies nasal congestion - *Cardiovascular Reports shortness of breath with activity, Reports leg swelling, Denies chest pain, Denies rapid, pounding, or irregular heartbeat - *Respiratory Denies chest congestion, Denies cough - *Gastrointestinal Reports abdominal pain, Reports constipation, Denies heartburn - *Genitourinary Denies painful urination - *Musculoskeletal Reports abnormal walking, Reports joint pain, Reports back pain, Reports joint swelling, Reports stiffness - Integumentary/Breasts Denies rash - *Neurologic Reports weakness, Denies confusion, Denies dizziness, Denies localized weakness - Psychiatric Reports lack of enjoyment, Reports anxiety - Endocrine Reports excessive sweating Meds Home Medications Medication Instructions Recorded Confirmed Type Acetaminophen [Acetaminophen Extra 500 mg PO DAILY 04/24/20 05/24/22 History Strength] Docusate Sodium [Stool Softener] 100 mg PO DAILY 04/24/20 05/24/22 History Furosemide [Furosemide 20mg Tab] 20 mg PO DAILY 04/24/20 05/24/22 History Gabapentin [Gabapentin 300mg Cap] 300 mg PO TID 04/24/20 05/24/22 History Levocetirizine Dihydrochloride 5 mg PO DAILY 04/24/20 05/24/22 History Magnesium Oxide [Magnesium] 400 mg PO BID 04/24/20 05/24/22 History Multivit-Min/FA/Lycopen/Lutein 1 tab PO DAILY 04/24/20 05/24/22 History [Centrum Silver Tablet] Omeprazole [Omeprazole 20mg 20 mg PO DAILY 04/24/20 05/24/22 History Capsule] fluoxetine 40 mg capsule 100 mg PO DAILY cap 08/04/21 05/24/22 History insulin glargine 100 unit/mL 25 unit SQ HS ml 08/04/21 05/24/22 History subcutaneous solution calcium carbonate 600 mg-vitamin 1 tab PO BID tab 11/12/21 05/24/22 History D3 5 mcg (200 unit) tablet potassium chloride 10 mEq 10 meq PO DAILY tab 05/12/22 05/24/22 History tablet,extended release Apixaban [Eliquis] 5
[2022-05-24 12:09] LABS: POC Glucose,Bedside 344 (70-110)
--- NOTE | 2022-05-24 17:12 | PC.NURSE ---
Patient FSBG 503; Recvd v.o;.; from Dr. Mendoza, give 15 units regular insulin now and start Lantus 25 units tonight at HS; do not do Blood Glucose Blood draw at this time.
[2022-05-24 17:20] LABS: POC Glucose,Bedside 503 (70-110)
[2022-05-24 20:14] LABS: POC Glucose,Bedside 439 (70-110)
[2022-05-25] VITALS (11 sets, daily range): BP systolic 107–143; BP diastolic 57–64; PULSE 60–105; RESP 16–18; TEMP 36.6–36.8; O2SAT 92–96; BMI 56.3
--- NOTE | 2022-05-25 04:18 | PC.NURSE ---
Pt has rested intermittently this shift. She is alert and oriented x4. Lung sounds are clear bilaterally. Tolerating room air well. She c/o a headache at the start of shift and was medicated per mar with adequate relief. +2 edema noted to BLE and is tender to touch. Bowel sounds active in all 4 quads. FSBS was 439 at 2100. Pt received SSI per dec. VSS.
[2022-05-25 05:53] LABS: POC Glucose,Bedside 359 (70-110)
[2022-05-25 06:42] LABS: Basophils % 0.1 % (0.1-2.0); Eosinophils # 0.1 K/mm3 (0.0-0.4); Eosinophils % 1.5 % (0.1-12.0); Hemoglobin 8.4 g/dL (12.2-16.2); Lymphocytes # 1.4 K/mm3 (0.7-4.5); Lymphocytes % 14.6 % (10-50); Mean Corpuscular HGB Conc 32.6 g/dL (31.8-35.4); Mean Corpuscular Hemoglobin 24.3 pg (27.0-31.2); Mean Corpuscular Volume 74.6 fl (81-99); Mean Platelet Volume 6.8 fl (7.4-10.4); Monocytes # 0.5 K/mm3 (0.1-1.0); Monocytes % 4.9 % (1.7-9.3); Neutrophils # 7.7 K/mm3 (1.8-7.8); Neutrophils % 78.9 % (37.0-80.0); Platelet Count 493 K/mm3 (142-424); Red Blood Count 3.47 M/mm3 (4.20-5.40); Red Cell Distribution Width 15.8 % (11.5-17.5); White Blood Count 9.8 K/mm3 (4.8-10.8)
[2022-05-25 06:44] LABS: Hematocrit 25.9 % (37.0-47.0)
--- NOTE | 2022-05-25 08:00 | CA_ITS ---
APPROVED REPORT EXAM: Comprehensive 2D, Doppler, and color-flow Echocardiogram Meter Maintenance Person: Jami Tay CRT Ht: 5 ft 4 in Wt: 325lbs BSA: 2.40 BP: 132/59 mmHg Indications: CVA/TIA, Diabetes, Obesity, Hyperlipidemia, Hypertension/HDD, Afib, lumpectomy, pt flat on back, murmur 2D Dimensions Aortic Root 1.93 cm LA Volume 109.30 mL LA Volume Index 45.50 mL/m2 (M/F) 16-34 M-Mode Dimensions RVDd 4.75 cm (0.9-2.6) LA Diam 4.72 cm (1.9-4.0) LVDd 3.74 cm (3.5-5.7) Ao Diam 3.77 cm (2.0-3.7) LVDs 2.29 cm (3.5-5.7) IVSd 1.53 cm (0.6-1.1) PWd 1.17 cm (0.6-1.1) EF (Teich) 70.00% FS 38.80% EDV (Teich) 59.60 mL TAPSE 1.51 (<1.7) ESV (Teich) 17.90 mL LV Diastology E Decel Time 150.00 (160-240 msec) E/A Ratio 3.60 MED E' 8.30 (< 7 cm/sec) MED A' 3.70 cm/s E'/MED E' Ratio 19.31 (>14) LAT E' 10.10 (<10 cm/sec) LAT A' 6.30 cm/s E/LAT E' Ratio 15.87 (>14) Mitral Valve MV E Max Rodney. 160.00 (40-130 cm/s) MV A Velocity 44.00 (40-130 cm/s) E/A Ratio 3.60 MV Decel. Time 150.00 (160-240 ms) MV PHT 44.00 ms Pulmonary Valve PV Peak Velocity 140.00 (50-150 cm/s) Tricuspid Valve TR P. Velocity 345.00 cm/s RAP Estimate 10.00 mmHg RVSP 57.70 mmHg Left Ventricle Left atrium is moderately enlarged, left ventricle is normal size, mild concentric left ventricular hypertrophy, estimated ejection fraction 55% with no regional wall motion abnormality, diastolic parameters are inconclusive. Right Ventricle Right atrium and right ventricle are mildly enlarged with normal contractility. Aortic Valve Aortic valve is thickened and calcified leaflet continue to display mobility, aortic outflow Doppler is not obtained. Mitral Valve Mitral valve mitral annular calcification, there is no mitral stenosis, there is mild mitral regurgitation. Tricuspid Valve Tricuspid valve is grossly normal, there is mild tricuspid regurgitation. Tricuspid regurgitation jet velocity is inadequate for calculation of the right ventricular systolic pressure. Pulmonic Valve Pulmonic valve is poorly visualized. Great Vessels Aortic root is normal size. Inferior vena cava is mildly dilated without significant inspiratory collapse. Pericardium No significant pericardial effusion noted. Conclusion 1. Biatrial enlargement, normal left ventricular size, mild concentric left ventricular hypertrophy, estimated ejection fraction 55% with no regional wall motion abnormality, diastolic parameters are inconclusive. 2. Thickened and calcified aortic valve leaflet continue to display mobility, aortic outflow velocities are not recorded, repeat study is recommended. 3. Mild mitral and tricuspid regurgitation. 4. No significant pericardial effusion. 5. Inferior vena cava is mildly dilated without significant inspiratory collapse. Electronically signed by : Darrick Childs MD 05/25/2022 19:31:50
--- NOTE | 2022-05-25 10:07 | HMH.PTEV ---
Physical Therapy Evaluation Rehab PT IP Evaluation Start: 05/24/22 09:29 Freq: ONCE Status: Active Protocol: Document 05/25/22 10:00 ISAC (Rec: 05/25/22 10:07 ISAC [id number]) Subjective/History History History Ms. Kim is a 67-year-old white female with insulin- dependent diabetes mellitus, hypertension, obesity, chronic back pain, osteoarthritis and history of CVA. She presented to the ER late last evening after twisting her knee at home and developing pain in the knee and back to the point she was not able to walk. She generally ambulates with a walker. She denies falling. She is known to have severe arthritis of the knees and has been advised on knee replacement. She had a hemorrhagic stroke in December 2021 and spent about a month at [facility] before returning to her own home. She lives alone. Subjective Subjective Pt c/o pain in R knee and low back w/ mvmnt Pt declined to stand or gett OOB to chair Rehab PT IP Eval Objective Appearance Patient Behavior Cooperative Patient Orientation Person,Place,Birthday,Year, Situation Difficulty following instructions none Speech Pattern Appropriate,Coherent Ambulation Patient Able to Ambulate No Balance Ability to Arise Unable Sitting Balance Steady, safe Standing Balance Unsteady Dynamic Sitting Balance Ability Fair Dynamic Standing Balance Ability Zero Transfers Bed Transfer Ability Moderate x 2 (50% assist) Rehab PT IP prob,goals,plan Problems Date of Evaluation: 05/25/22 PT IP Problems Bed Mobility,Transfers,Gait, Balance,Self care,Safety Rehab Potential Rehab Potential Fair Equipment Needs Assistive Devices Rolling / Wheeled Walker Plan PT Intervention Plan Bed Mobility,Transfers,Gait, Balance,Self care,Safety, Therapeutic Exercise PT Plan Frequency BID Duration
--- NOTE | 2022-05-25 10:23 | HMH.ACPN2 ---
<Arcelia Gunn - Last Filed: 05/25/22 10:23> Internal Medicine - PN: Subj *Date: 05/25/22 *Time: 10:23 Interval history: Patient states she does not feel any better. She states she did sleep last night and was able to eat breakfast. Physical therapy has been in her room and assisted her to sit on the side of the bed. She said her Barry catheter began to leak and therefore had to stop the progress. She denies chest pain and shortness of breath. She does have coughing spasms. Laboratory this morning reveals a normal white blood cell count at 9800 with a hemoglobin of 8.4 and hematocrit of 25.9. Blood sugars are noted to be at 344 up to 503. Urine culture is negative thus far. Exam Vital signs and Labs for Last 24 Hours: Temp Pulse Resp BP Pulse Ox 98.2 F 100 H 18 139/58 L 93 L 05/25/22 07:49 05/25/22 08:00 05/25/22 07:49 05/25/22 07:49 05/25/22 07:49 Laboratory Results - last 24 hr 05/24/22 12:01: POC Glucose 344 H* 05/24/22 17:00: POC Glucose 503 H* 05/24/22 20:06: POC Glucose 439 H* 05/25/22 05:45: POC Glucose 359 H* 05/25/22 06:35: WBC 9.8 D, RBC 3.47 L, Hgb 8.4 L, Hct 25.9 L, MCV 74.6 L, MCH 24.3 L, MCHC 32.6, RDW 15.8, Plt Count 493 H, MPV 6.8 L, Neut % (Auto) 78.9, Lymph % (Auto) 14.6, [place] % (Auto) 4.9, Eos % (Auto) 1.5, Baso % (Auto) 0.1, Neut # (Auto) 7.7, Lymph # (Auto) 1.4, [place] # (Auto) 0.5, Eos # (Auto) 0.1, Baso # (Auto) 0.0 I & O for Last 24 hours: Intake & Output 05/22/22 05/23/22 05/24/22 05/25/22 11:59 11:59 11:59 11:59 Intake Total 277 / 277 2108 / 2108 Output Total 610 / 610 1800 / 1800 Balance -333 / -333 308 / 308 Weight 328 lb 9.6 oz 330 lb 1.6 oz Microbiology Reports for the Last 24 Hours: Microbiology 05/24/22 00:50 Blood Blood Culture - Preliminary 05/24/22 00:28 Urine,Catheterized Urine Culture - Preliminary NO GROWTH AFTER 24 HOURS - Constitutional no acute distress, obese - *Routine Respiratory Exam Present: CTA bilaterally Comments: She does have a periodic cough. - *Routine Cardiovascular Exam Present: RRR - *Routine Abdominal Exam Present: soft, normoactive bowel sounds, obese. Absent: tenderness Comments: Barry catheter remains in place - *Routine Extremities Exam Present: edema (Trace bilaterally) - *Routine Neurological Exam Present: alert, oriented X3 Assessment and Plan (1) Acute knee pain Status: Acute Qualifiers: Laterality: right Qualified Code(s): M25.561 - Pain in right knee Category: Medical Code(s): M25.569 - Pain in unspecified knee (2) Gait abnormality Status: Acute Category: Medical Code(s): R26.9 - Unspecified abnormalities of gait and mobility (3) Type 2 diabetes mellitus with diabetic neuropathy, with long-term current use of insulin Status: Acute Category: Medical Code(s): E11.40 - Type 2 diabetes mellitus with diabetic neuropathy, unspecified; Z79.4 - intermediate manager (current) use of insulin (4) UTI (urinary tract infection) Status: Acute Qualifiers: Urinary tract infection type: site unspecified Hematuria presence: without hematuria Qualified Code(s): N39.0 - Urinary tract infection, site not specified Category: Medical Code(s): N39.0 - Urinary tract infection, site not specified (5) Renal insufficiency Status: Acute Category: Medical Code(s): N28.9 - Disorder of kidney and ureter, unspecified (6) Hepatic steatosis Status: Acute Category: Medical Code(s): K76.0 - Fatty (change of) liver, not elsewhere classified - Assessment and plan all Dx Assessment and Plan for all problems:: PT and OT have seen patient. Care management to be consulted for discharge planning. Will increase Lantus and sliding scale. <Cirilo Mendoza - Last Filed: 05/26/22 13:10> Internal Medicine - PN: Subj *Date: 05/25/22 *Time: 13:09 Exam Vital signs and Labs for Last 24 Hours: Temp Pulse Resp BP Pulse O
--- NOTE | 2022-05-25 10:53 | SW/DCPLANNER ---
Addendum entered by [facility] 05/27/22 10:25: Home health services will start Wednesday05/29/22 for this patient. Addendum entered by [facility] 05/27/22 09:31: The plan for this patient is to discharge home today. Patient has requested to use [facility]: patient information/order will be faxed this AM. Addendum entered by [facility] 05/26/22 10:40: This patient expressed during morning rounds to Dr Mendoza that she is no longer interested in placement and prefers to return home. Patient stated that she has family that lives close by that will check on her often. Patient information/order will be faxed to home health agency of patient preference. Patient could discharge later today or tomorrow. Addendum entered by [facility] 05/25/22 14:17: Gena urena/ [facility] stated that she can accept this patient pending precert. Addendum entered by [facility] 05/25/22 13:35: [facility] is not accepting any new admissions at this time. Patient is agreeable to placement at [facility]: patient information has been faxed. Addendum entered by [facility] 05/25/22 12:58: [facility] is unable to accept this patient at this time. Patient information will be faxed to Kelsey urena/ [facility]. Original Note: I spoke with this patient regarding plans once medically stable for discharge. Per PT evaluation patient was unable to ambulate and SNF level of care was recommended. Patient stated that she did not ambulate due to not having a walker but she is able to ambulate. After a lengthy discussion with patient regarding home w/ home health vs placement: patient is agreeable to placement at [facility] or [facility]. Patient information has been faxed to Elisabeth urena/ [facility]. Patient's insurance is not in network with [facility] or [place].
--- NOTE | 2022-05-25 11:22 | HMH.OTEV ---
OT Inpatient Evaluation Rehab OT IP Evaluation Start: 05/25/22 08:28 Freq: ONCE Status: Complete Protocol: Document 05/25/22 11:12 [email or web address] (Rec: 05/25/22 11:22 SCOOTER [id number]) Rehab OT IP Assessment Subjective History Ms. Kim is a 67-year-old white female with insulin- dependent diabetes mellitus, hypertension, obesity, chronic back pain, osteoarthritis and history of CVA. She presented to the ER late last evening after twisting her knee at home and developing pain in the knee and back to the point she was not able to walk. She generally ambulates with a walker. She denies falling. She is known to have severe arthritis of the knees and has been advised on knee replacement. She had a hemorrhagic stroke in December 2021 and spent about a month at [facility] before returning to her own home. She lives alone. She was evaluated in the emergency room with multiple x -rays and CT scan which showed no acute fractures or other acute findings. She was noted to have an elevated white count and pyuria. Because she lives alone and was unable to ambulate she has been admitted for further observation and also to start antibiotics for her apparent urinary tract infection. [facility] History Medical History: Reports:: Atrial Fibrillation, Cancer, Depression, Diabetes Mellitus Type 2, Gastroesophageal Reflux Disease(GERD), Hyperlipidemia, Hypertension Patient lives alone in [address] [place] [address] with no BRANDI. Patient verbalize being independent with ADLs and fx'l mobility
[2022-05-25 13:07] LABS: POC Glucose,Bedside 328 (70-110)
[2022-05-25 13:07] LABS: POC Glucose,Bedside 351 (70-110)
--- NOTE | 2022-05-25 17:20 | PC.NURSE ---
pt A&OX4. pt was up to chair with assistance. FSBS was 325, she was given insulin per sliding scale. no complaints of pain this shift.
[2022-05-25 20:22] LABS: POC Glucose,Bedside 325 (70-110)
[2022-05-25 20:22] LABS: POC Glucose,Bedside 224 (70-110)
[2022-05-26] VITALS (9 sets, daily range): BP systolic 126–140; BP diastolic 57–76; PULSE 61–109; RESP 16–24; TEMP 36.5–37.1; O2SAT 91–95; BMI 56.2
--- NOTE | 2022-05-26 03:45 | PC.NURSE ---
Pt is alert and oriented x4, pt has been resting throughout the shift. Pt complained of pain one time this shift, treated prn per dec. 1+ non pitting edema to BLE, redness noted on lower legs. Blisters and scaly skin noted to right lower calf. Pt complained of feeling like her candelaria was leaking, on observation pt had thick, white vaginal discharge, cleaned pt up and checked candelaria placement. Tele has showed a. fib. Pt is tolerating room air with O2 sat >90%.
[2022-05-26 06:03] LABS: POC Glucose,Bedside 189 (70-110)
[2022-05-26 08:25] LABS: POC Glucose,Bedside 242 (70-110)
--- NOTE | 2022-05-26 08:37 | HMH.ACPN2 ---
<Arcelia Gunn - Last Filed: 05/26/22 08:37> Internal Medicine - PN: Subj *Date: 05/26/22 *Time: 08:37 Interval history: Patient's biggest complaint this a.m. is back pain. She states it started when she set up in a chair yesterday. She was able to sleep a little after nursing staff repositioned her in the bed. She does not turn independently. She is eating without difficulty. She denies shortness of breath and chest pain. She did state that she did wheeze some during the night. She continues with a Barry catheter. Nursing has noted some discharge around the catheter. Exam Vital signs and Labs for Last 24 Hours: Temp Pulse Resp BP Pulse Ox 98.7 F 109 H 20 126/65 93 L 05/26/22 08:00 05/26/22 08:00 05/26/22 08:00 05/26/22 08:00 05/26/22 08:00 Laboratory Results - last 24 hr 05/25/22 11:05: POC Glucose 351 H* 05/25/22 12:56: POC Glucose 328 H* 05/25/22 16:15: POC Glucose 325 H* 05/25/22 20:10: POC Glucose 224 H 05/26/22 05:51: POC Glucose 189 H 05/26/22 08:01: POC Glucose 242 H I & O for Last 24 hours: Intake & Output 05/23/22 05/24/22 05/25/22 05/26/22 11:59 11:59 11:59 11:59 Intake Total 277 / 277 2108 / 2108 1565 / 1565 Output Total 610 / 610 2600 / 2600 4100 / 4100 Balance -333 / -333 -492 / -492 -2535 / -2535 Weight 328 lb 9.6 oz 330 lb 1.57 oz 329 lb 3.2 oz Microbiology Reports for the Last 24 Hours: Microbiology 05/24/22 00:50 Blood Blood Culture - Preliminary Gram Positive Cocci 05/24/22 00:50 Blood Blood Culture - Preliminary NO GROWTH AFTER 48 HOURS 05/24/22 00:28 Urine,Catheterized Urine Culture - Final NO GROWTH AFTER 48 HOURS - Constitutional no acute distress - *Routine Respiratory Exam Present: CTA bilaterally - *Routine Cardiovascular Exam Present: irregular rhythm - *Routine Abdominal Exam Present: soft, normoactive bowel sounds, tenderness (She describes her abdomen is being sore), obese - *Routine Extremities Exam Absent: edema, calf tenderness - *Routine Neurological Exam Present: alert, oriented X3 Assessment and Plan (1) Acute knee pain Status: Acute Qualifiers: Laterality: right Qualified Code(s): M25.561 - Pain in right knee Category: Medical Code(s): M25.569 - Pain in unspecified knee (2) Gait abnormality Status: Acute Category: Medical Code(s): R26.9 - Unspecified abnormalities of gait and mobility (3) Type 2 diabetes mellitus with diabetic neuropathy, with long-term current use of insulin Status: Acute Category: Medical Code(s): E11.40 - Type 2 diabetes mellitus with diabetic neuropathy, unspecified; Z79.4 - intermodal dispatcher (current) use of insulin (4) UTI (urinary tract infection) Status: Acute Qualifiers: Urinary tract infection type: site unspecified Hematuria presence: without hematuria Qualified Code(s): N39.0 - Urinary tract infection, site not specified Category: Medical Code(s): N39.0 - Urinary tract infection, site not specified (5) Renal insufficiency Status: Acute Category: Medical Code(s): N28.9 - Disorder of kidney and ureter, unspecified (6) Hepatic steatosis Status: Acute Category: Medical Code(s): K76.0 - Fatty (change of) liver, not elsewhere classified (7) Anemia Status: Acute Category: Medical Code(s): D64.9 - Anemia, unspecified - Assessment and plan all Dx Assessment and Plan for all problems:: Care management is assisting with disposition. We will remove Barry catheter. Anemia studies. Out of bed activity with continued OT and PT. <Cirilo Mendoza - Last Filed: 05/26/22 13:12> Internal Medicine - PN: Subj *Date: 05/26/22 *Time: 13:10 Exam Vital signs and Labs for Last 24 Hours: Temp Pulse Resp BP Pulse Ox 98.7 F 104 H 20 126/65 93 L 05/26/22 08:00 05/26/22 13:00 05/26/22 08:00 05/26/22 08:00 05/26/22 08:00
[2022-05-26 09:13] LABS: Basophils % 0.3 % (0.1-2.0); Eosinophils # 0.5 K/mm3 (0.0-0.4); Eosinophils % 3.3 % (0.1-12.0); Hematocrit 28.5 % (37.0-47.0); Hemoglobin 9.2 g/dL (12.2-16.2); Lymphocytes # 1.5 K/mm3 (0.7-4.5); Lymphocytes % 10.6 % (10-50); Mean Corpuscular HGB Conc 32.2 g/dL (31.8-35.4); Mean Corpuscular Hemoglobin 24.3 pg (27.0-31.2); Mean Corpuscular Volume 75.6 fl (81-99); Mean Platelet Volume 6.8 fl (7.4-10.4); Monocytes # 0.5 K/mm3 (0.1-1.0); Monocytes % 3.7 % (1.7-9.3); Neutrophils # 11.3 K/mm3 (1.8-7.8); Neutrophils % 82.2 % (37.0-80.0); Platelet Count 591 K/mm3 (142-424); Red Blood Count 3.77 M/mm3 (4.20-5.40); Red Cell Distribution Width 15.9 % (11.5-17.5); White Blood Count 13.8 K/mm3 (4.8-10.8)
[2022-05-26 09:35] LABS: Iron 14 ug/dL (37-170)
[2022-05-26 09:44] LABS: Total Iron Binding Capacity 170 ug/dL (265-497)
[2022-05-26 10:26] LABS: Vitamin B12 946 pg/mL (239-931)
--- NOTE | 2022-05-26 10:30 | PC.NURSE ---
Attempted to get patient up to the chair to change her sheets due to episode of incontinence but she refused; Pt was cleaned and sheets changed with assistance from LOI Heller
--- NOTE | 2022-05-26 13:49 | PC.NURSE ---
rounded on patient. no concerns or questions at this time. patient had just gotten back to bed after ambulating in room, she was happy to of gotten some exercise. states she is feeling much better. was able to tolerate lunch well after not having much of an appetite this morning. no needs voiced. encouraged patient to ring out with any concerns or needs that arise.
--- NOTE | 2022-05-26 17:24 | PC.NURSE ---
pt is alert and oriented X4. she has been ambulating in room with some assistance. complained of some back pain but was relieved with medication. Barry Catheter was removed this am and pt has voided since. pt has been controlled afib on tele.
[2022-05-26 18:47] LABS: POC Glucose,Bedside 209 (70-110)
[2022-05-26 19:03] LABS: Occult Blood,Stool Negative (Negative)
[2022-05-26 21:51] LABS: POC Glucose,Bedside 266 (70-110)
[2022-05-27] VITALS (7 sets, daily range): BP systolic 125–155; BP diastolic 56–77; PULSE 65–110; RESP 16–18; TEMP 36.4–37.2; O2SAT 92–96; BMI 56.2
--- NOTE | 2022-05-27 04:02 | PC.NURSE ---
pt has rested intermittently, a fib on tele with a controlled rate, remains on room air, has had 500 mL of urine out so far this shift
[2022-05-27 06:52] LABS: POC Glucose,Bedside 259 (70-110)
--- NOTE | 2022-05-27 08:17 | HMH.ACPN2 ---
<Arcelia Gunn - Last Filed: 05/27/22 08:17> Internal Medicine - PN: Subj *Date: 05/27/22 *Time: 08:17 Interval history: Doing well this AM. States she had a good day yesterday. She did not sleep much last night. She is voiding QS without her catheter. Bowels have moved. She is eating normally. She was out of bed yesterday and did some walking in the room. She has also been doing some exercises. She is anxious to go home. Exam Vital signs and Labs for Last 24 Hours: Temp Pulse Resp BP Pulse Ox 97.6 F 100 H 16 155/77 H 96 05/27/22 08:00 05/27/22 08:00 05/27/22 08:00 05/27/22 08:00 05/27/22 08:00 Laboratory Results - last 24 hr 05/26/22 08:01: POC Glucose 242 H 05/26/22 09:00: WBC 13.8 H D, RBC 3.77 L, Hgb 9.2 L, Hct 28.5 L, MCV 75.6 L, MCH 24.3 L, MCHC 32.2, RDW 15.9, Plt Count 591 H, MPV 6.8 L, Neut % (Auto) 82.2 H, Lymph % (Auto) 10.6, Hartley % (Auto) 3.7, Eos % (Auto) 3.3, Baso % (Auto) 0.3, Neut # (Auto) 11.3 H, Lymph # (Auto) 1.5, Hartley # (Auto) 0.5, Eos # (Auto) 0.5 H, Baso # (Auto) 0.0 05/26/22 09:00: Iron 14 L, TIBC 170 L, Iron Saturation 8.25371 L, Vitamin B12 946 H, Folate 11.10 05/26/22 11:13: POC Glucose 209 H 05/26/22 17:45: Stool Occult Blood Negative 05/26/22 21:31: POC Glucose 266 H 05/27/22 06:41: POC Glucose 259 H I & O for Last 24 hours: Intake & Output 05/24/22 05/25/22 05/26/22 05/27/22 11:59 11:59 11:59 11:59 Intake Total 277 / 277 2108 / 2108 1565 / 1565 480 / 480 Output Total 610 / 610 2600 / 2600 4950 / 4950 500 / 500 Balance -333 / -333 -492 / -492 -3385 / -3385 -20 / -20 Weight 328 lb 9.6 oz 330 lb 1.57 oz 329 lb 3.2 oz 329 lb 3.214 oz Microbiology Reports for the Last 24 Hours: Microbiology 05/24/22 00:50 Blood Blood Culture - Preliminary Gram Positive Cocci - Constitutional no acute distress, obese Comments: Assist with exam - *Routine Respiratory Exam Present: CTA bilaterally (Anteriorly and posteriorly) - *Routine Cardiovascular Exam Present: irregular rhythm (Monitor showing atrial fibrillation with controlled ventricular response 70 to 80s) - *Routine Abdominal Exam Present: soft, normoactive bowel sounds, obese. Absent: tenderness - *Routine Extremities Exam Absent: edema, calf tenderness - *Routine Neurological Exam Present: alert, oriented X3 Assessment and Plan (1) Acute knee pain Status: Acute Qualifiers: Laterality: right Qualified Code(s): M25.561 - Pain in right knee Category: Medical Code(s): M25.569 - Pain in unspecified knee (2) Gait abnormality Status: Acute Category: Medical Code(s): R26.9 - Unspecified abnormalities of gait and mobility (3) Type 2 diabetes mellitus with diabetic neuropathy, with long-term current use of insulin Status: Acute Category: Medical Code(s): E11.40 - Type 2 diabetes mellitus with diabetic neuropathy, unspecified; Z79.4 - [facility] (current) use of insulin (4) UTI (urinary tract infection) Status: Acute Qualifiers: Urinary tract infection type: site unspecified Hematuria presence: without hematuria Qualified Code(s): N39.0 - Urinary tract infection, site not specified Category: Medical Code(s): N39.0 - Urinary tract infection, site not specified (5) Renal insufficiency Status: Acute Category: Medical Code(s): N28.9 - Disorder of kidney and ureter, unspecified (6) Hepatic steatosis Status: Acute Category: Medical Code(s): K76.0 - Fatty (change of) liver, not elsewhere classified (7) Anemia Status: Acute Category: Medical Code(s): D64.9 - Anemia, unspecified - Assessment and plan all Dx Assessment and Plan for all problems:: Will discharge to home. She will need to be started on iron. Continue UTI treatment. <Cirilo Mendoza - Last Filed: 05/27/22 12:10> Internal Medicine - PN: Subj *Date: 05/27/22 *Time: 12:09 Exam Vital signs and Labs for Last 24 Hours: Tem
--- NOTE | 2022-05-27 09:26 | HMH.PHAINT ---
DISCHARGE MEDICATION COUNSELING PROVIDED. DISCUSSED LEVAQUIN (ANTIBIOTIC, DAILY, WATCH FOR UPSET STOMACH, HEADACHE, DIARRHEA, CAN TAKE WITH FOOD BUT SEPARATE FROM MULTIVITAMIN, MAGNESIUM OXIDE AND FERROUS SULFATE BY AT LEAST 2 HOURS) AND FERROUS SULFATE (IRON SUPPLEMENT, DAILY, MAY WORSEN GERD, TURN STOOLS BLACK, CAUSE UPSET STOMACH, DIARRHEA) PRESCRIPTIONS. PATIENT ENDORSED NO QUESTIONS AT THIS TIME.
--- NOTE | 2022-05-27 10:40 | PC.NURSE ---
Pt says her ride wont be able to pick her up until they get off work at 4:00 or 5:00
--- NOTE | 2022-05-27 10:52 | PC.NURSE ---
Rounded on this pt, pt is being discharged today. No needs voiced at this time.
[2022-05-27 11:03] LABS: POC Glucose,Bedside 203 (70-110)
--- NOTE | 2022-05-27 12:30 | PC.NURSE ---
Home meds returned to patient
[2022-05-27 17:19] LABS: POC Glucose,Bedside 191 (70-110)
--- NOTE | 2022-05-28 22:51 | HMH.DCSUM ---
General - General Admission date:: 05/24/22 <Cirilo Mendoza - 06/11/22 22:45> 05/24/22 <Traci Birmingham - 05/28/22 22:58> Discharge date: 05/27/22 <VinnieTraci - 05/28/22 22:58> HPI HPI: Ms. Kim is a 67-year-old white female with insulin-dependent diabetes mellitus, hypertension, obesity, chronic back pain, osteoarthritis and history of CVA. She presented to the ER late last evening after twisting her knee at home and developing pain in the knee and back to the point she was not able to walk. She generally ambulates with a walker. She denies falling. She is known to have severe arthritis of the knees and has been advised on knee replacement. She had a hemorrhagic stroke in December 2021 and spent about a month at [facility] before returning to her own home. She lives alone. She was evaluated in the emergency room with multiple x-rays and CT scan which showed no acute fractures or other acute findings. She was noted to have an elevated white count and pyuria. Because she lives alone and was unable to ambulate she has been admitted for further observation and also to start antibiotics for her apparent urinary tract infection. <Traci Birmingham - 05/28/22 22:58> Hospital Course Hospital Course: The patient was admitted and empirically started on IV Levaquin pending results of her urine culture. A PT consult was ordered to evaluate her needs at discharge. Care management was consulted for disposition planning. She had an echo showing an EF of 55% with a thickened and calcified aortic valve leaflet. A repeat study was recommended. Her Lantus and sliding scale insulin were increased due to hyperglycemia. She was seen by therapy who felt she would benefit from skilled therapy while at [facility] and short-term rehab upon discharge. She was able to get up and sit in a chair and she did begin resting better. Her Barry catheter was removed. She was anemic and anemia studies were ordered. They did return showing a low iron level. By 05/27/2022, she was feeling better. She was voiding without her catheter and she had slept much better. Her bowels were moving and she was eating normally. She was able to get out of bed and walk in her room and was anxious to go home. She was stable for discharge on iron and Levaquin. Of note her blood cultures did return growing Staph epidermidis. Her urine culture showed no growth. <Traci Birmingham - 05/28/22 22:58> Objective Vital signs: Temp Pulse Resp BP Pulse Ox 98.4 F 92 H 16 125/57 L 92 L 05/27/22 16:00 05/27/22 16:00 05/27/22 16:00 05/27/22 16:00 05/27/22 16:00 <Cirilo Mendoza - 06/11/22 22:45> Temp Pulse Resp BP Pulse Ox 98.4 F 92 H 16 125/57 L 92 L 05/27/22 16:00 05/27/22 16:00 05/27/22 16:00 05/27/22 16:00 05/27/22 16:00 <Traci Birmingham - 05/28/22 22:58> Narrative: - Constitutional no acute distress, obese Comments: Assist with exam - *Routine Respiratory Exam Present: CTA bilaterally (Anteriorly and posteriorly) - *Routine Cardiovascular Exam Present: irregular rhythm (Monitor showing atrial fibrillation with controlled ventricular response 70 to 80s) - *Routine Abdominal Exam Present: soft, normoactive bowel sounds, obese. Absent: tenderness - *Routine Extremities Exam Absent: edema, calf tenderness - *Routine Neurological Exam Present: alert, oriented X3 <Traci Birmingham - 05/28/22 22:58> Results Labs on day of discharge: Preliminary micro results at discharge 05/24/22 00:50 Blood Culture - Preliminary Blood Staphylococcus epidermidis 05/24/22 00:50 Blood Culture - Preliminary Blood NO GROWTH AFTER 48 HOURS <Traci Birmingham - 05/28/22 22:58> DS: Diagnosis - Discharge Diagnosis (1) Acute knee pain Status: Acute (2) Gait abnormality Status: Acute (3) Type 2 diabetes mellitus with diabetic neuropathy, with long-term current use of insulin
--- NOTE | 2022-05-29 12:44 | CARE MANAGER ---
Contacted patient's family related to hospital discharge. Her legs are a little more swollen today, but she reports increase in walking yesterday. She is having some pain in her legs and back and takes Tyelnol, but doesn't seem to help right now. Educated the patient to contact PCP if swelling continued or worsened as well as pain. KEVIN Buitrago
== END 2022-05-27 18:12 | DRG 690 ==
LOC: ER 05-24 02:20 → 2ND 05-24 15:24
PROVIDERS: Nurse Practitioner Family; Admitting Provider Family Medicine; Emergency Provider Emergency Medicine; Visit Provider Family Medicine
DX: N39.0 Urinary tract infection, site not specified (principal); Z68.43 Body mass index [BMI] 50.0-59.9, adult; L03.115 Cellulitis of right lower limb; E11.40 Type 2 diabetes mellitus with diabetic neuropathy, unspecified; I10 Essential (primary) hypertension; D64.9 Anemia, unspecified; M25.561 Pain in right knee; E66.01 Morbid (severe) obesity due to excess calories; I48.91 Unspecified atrial fibrillation; Z79.899 Other long term (current) drug therapy
CPT/HCPCS: 36415; 51702; 71045; 72131; 72170; 73560; 74176; 80048; 80053; 81001; 82150; 82272; 82607; 82746; 82962; 83036; 83540; 83550; 83605; 83690; 83880; 84145; 84436; 84443; 84484; 85007; 85025; 85651; 86140; 87040; 87077; 87086; 87186; 93005; 93306; 94640; 97116; 97161; 97165; 97530; 97535; 99285; C9803; G0328; J1956; U0003; U0005

== ENCOUNTER 2025-06-27 08:17 | Outpatient (CLI) | payer MEDICARE, MEDICAID, SELFPAY ==
[2025-06-27 08:45] LABS: Hematocrit 32.8 % (37.0-47.0); Hemoglobin 10.0 g/dL (12.2-16.2); Immature Granulocytes % 0.5 %; Mean Corpuscular HGB Conc 30.5 g/dL (31.8-35.4); Mean Corpuscular Hemoglobin 26.4 pg (27.0-31.2); Mean Corpuscular Volume 86.5 fl (81-99); Nucleated Red Blood Cells % 0 %; Platelet Count 359 K/mm3 (142-424); Red Blood Count 3.79 M/mm3 (4.20-5.40); Red Cell Distribution Width-SD 51.3 fL; White Blood Count 10.0 K/mm3 (4.8-10.8)
[2025-06-27 08:54] LABS: Albumin Level 3.6 g/dl (3.5-5.0); Chloride 105 mmol/L (98-107); Sodium 139 mmol/L (136-145)
[2025-06-27 08:55] LABS: Potassium 4.5 mmoL/L (3.5-5.1)
[2025-06-27 08:57] LABS: Alanine Aminotransferase 15 U/L (12-78); Albumin/Globulin Ratio 1.0 (1.1-1.8); Anion Gap 11.5 mEq/L (5-15); Aspartate Amino Transferase 22 U/L (14-36); Blood Urea Nitrogen 32 mg/dl (7-17); Carbon Dioxide 27 mmol/L (22.0-30.0); Creatinine,Serum 1.50 mg/dl (0.52-1.04); Estimated Glomerular Filt Rate 34 ml/min (>60); GFR (African American) 41 ML/MIN (>60); Globulin 3.6 g/dL (1.3-3.2); Total Protein,Serum 7.2 g/dl (6.3-8.2)
[2025-06-27 08:58] LABS: Alkaline Phosphatase 81 U/L (38-126); Bilirubin,Total 0.5 mg/dl (0.2-1.3); Calcium 9.0 mg/dl (8.4-10.2); Cholesterol 184 mg/dl (140-200); Glucose 96 mg/dl (74-100); HDL Cholesterol 32 mg/dl (40-60); Triglycerides 129 mg/dl (30-150)
[2025-06-27 10:00] LABS: Hemoglobin A1C 7.7 % (4.0-6.0)
== END 2025-06-27 23:59 | disposition home or self-care (01) ==
PROVIDERS: PCP Family Medicine; Visit Provider Family Medicine
DX: E78.49 Other hyperlipidemia (principal); E11.9 Type 2 diabetes mellitus without complications; D50.8 Other iron deficiency anemias; I10 Essential (primary) hypertension
CPT/HCPCS: 36415; 80053; 80061; 83036; 85025

== ENCOUNTER 2025-09-07 08:29 | Outpatient (CLI) | payer MEDICARE, MEDICAID, SELFPAY ==
--- OUTSIDE RECORDS SUMMARY | 2025-09-07 08:46 | XMS_ITS | Clinical Summary ---
Author Organization [facility] ([place], [place], [place], [place], [place]) Address [address] [place] [address] Care Team Providers Care Fretted Instruments Inspector Name Role Phone Unavailable Primary Care Provider Unavailabl e Social History Tobacco Use Types Packs/Day Years Used Date Smoking Tobacco: Never Assessed Comments Unknown Sex and Gender Information Value Date Recorded Sex Assigned at Not on file Legal Sex Female 5:16 PM CDT Gender Identity Not on file Sexual Orientation Not on file Plan of Treatment Not on file
--- OUTSIDE RECORDS SUMMARY | 2025-09-07 08:46 | XMS_ITS | Clinical Summary ---
Author Organization [facility] Address [address] [id number] Care Team Providers Care Survey Technician Name Role Phone Denice Lozano APRN Primary Care Provider Allergies Active Allergy Reactions Criticality Noted Date Comments Ceftriaxone Rash Low 07/13/2022 AGEP Penicillin G Other - please docum ent in the comment field Low 09/14/2018 Blackouts Medications acetaminophen (Tylenol) 500 MG tablet TAKE 1 TABLET 1 TIME EACH DAY Active Eliquis 5 MG tablet TAKE 1 TABLET 2 TIMES EACH DAY Active Ascorbic Acid (vitamin C) 500 MG tablet 4 Active aspirin 325 MG EC tablet TAKE 1 TABLET 1 TIME EACH DAY Active atorvastatin (Lipitor) 20 MG tablet TAKE 1 TABLET 1 TIME EACH DAY AT BEDTIME Active bisoprolol (Zebeta) 5 MG tablet TAKE 1 TABLET 1 TIME EACH DAY Active Balsam Sayda-Delta Oil (Venelex) ointment ointment 4 Active Calcium Carbonate-Vitam in D 600-5 MG-MCG capsule Take 1 capsule by mouth Daily. Active SM Lubricating Plus 0.5 % ophthalmic solution 3 Active clotrimazole (Lotrimin) 1 % cream 4 Active diphenhydrAMINE (Benadryl) 25 MG tablet 3 Active Docusate Sodium (DSS) 100 MG capsule Take 1 capsule every day by oral route as needed. Active Jardiance 25 MG 3 Active esomeprazole (NexIUM) [address] capsule 4 Active furosemide (Lasix) 20 MG tablet TAKE 1 TABLET 1 TIME EACH DAY IN THE MORNING. Active gabapentin (Neurontin) 300 MG capsule Take 3 capsules (900 mg) by mouth 1 (one) time each day. Active Glucagon 1 MG/0.2ML solution auto-injector Inject 1 mL every day by subcutaneous route as needed. Active hydrALAZINE (Apresoline) 20 MG/ML injection Take 1 mL every day by injection route as needed. Active Levemir FlexPen 100 UNIT/ML injection pen 4 Active Lantus SoloStar 100 UNIT/ML injection pen INJECT 25 UNITS UNDER THE SKIN 1 TIME EACH DAY AT BEDTIME Active HumaLOG KWIKPEN 100 UNIT/ML injection pen INJECT 25 UNITS UNDER THE SKIN 3 TIMES EACH DAY, BEFORE MEALS Active BD AutoShield Duo 30G X 5 MM misc 4 Active levocetirizine (Xyzal) 5 MG tablet TAKE 1 TABLET 1 TIME EACH DAY Active levoFLOXacin (Levaquin) 500 MG tablet 3 Active lisinopril 40 MG tablet TAKE 1 TABLET 1 TIME EACH DAY Active losartan (Cozaar) 100 MG tablet 4 Active magnesium oxide (Mag-Ox) 400 MG tablet magnesium oxide 400 mg (241.3 mg magnesium) tablet TAKE 1 TABLET 2 TIMES EACH DAY Active multivitamin-ir mu-uzrjwxxl-ulo ic acid (Centrum Silver, geriatric,) tablet Take 1 tablet by mouth. Active NIFEdipine XL (Procardia XL) 90 MG 24 hr tablet TAKE 1 TABLET 1 TIME EACH DAY Active Nyamyc [id number] UNIT/GM powder APPLY TO AFFECTED AREA 2 TIMES EACH DAY Active omeprazole (PriLOSEC) [address] capsule omeprazole 20 mg capsule,delayed release TAKE 1 CAPSULE 1 TIME EACH DAY Active Zofran 4 MG tablet 1 tab(s) orally every 6 hours, As Needed for nausea 8 Active pantoprazole (Protonix) 40 MG EC tablet Take 1 tablet (40 mg) by mouth Daily. Active potassium chloride CR (Klor-Con) 10 MEQ ER tablet potassium chloride ER 10 mEq tablet,extended release TAKE 1 TABLET 1 TIME EACH DAY Active QUEtiapine (SEROquel) 25 MG tablet 3 Active sertraline (Zoloft) 100 MG tablet TAKE 1 TABLET 1 TIME EACH DAY Active sulfamethoxazol e-trimethoprim (Bactrim) 400-80 MG tablet 3 Active triamcinolone (Kenalog) 0.1 % cream 3 Active valsartan (Diovan) 160 MG tablet 4 Active Active Problems Problem Noted Date Diagnosed Date Iron deficiency anemia 12/31/2023 Polyneuropathy, unspecified 09/22/2023 Type 2 diabetes mellitus without complications 1 11/22/2022 Primary osteoarthritis, right ankle and foot 06/2023 Bradycardia, unspecified 05/08/2023 Hemiplegia and hemiparesis f ollowing nontraumatic intracerebral hemorrhage affecting right dominant side 02/17/2023 Nontraumatic intracerebral h emorrhage in hemisphere, subcortical 02/17/2023 Atrial fibrillation 06/28/2022 GERD (gastroesophageal reflux disease) Venous stasis of both lower extremities 06/28/20 Diabetes 03/16/2022 Hypertension 03/16/2022 Cerebrovascular accident 01/23/2022 Resolved Problems Problem Noted Date Diagnosed Date Resolved Date Acute encephalopathy 07/22/2022 025 Immunizations Immunization Administration Dates Next Due Influenza, high-dose, quadrivalent 07/15/2021 Influenza, injectable, MDCK, preservative free, quadrivalent 07/12/2020 Influenza, injectable, quadrivalent 08/05/2019,1 Influenza, injectable, quadr ivalent, preservative free 08/14/2023 Influenza, seasonal, injectable 08/08/20,07/25/2009,08/09/2008,08/26 Pneumococcal Polysaccharide PPV23 10/04/2019 TD (adult), 2 Lf tetanus tox oid, preservative free, adsorbed 01/05/1997 Family History Medical History Relation Name Comments No Known Problems Father No Known Problems Mother Cancer Other Family history of cancer Relation Name Status Comments Father Mother Other Social History Tobacco Use Types Packs/Day Years Used Date Smoking Tobacco: Never Smokeless Tobacco: Never Alcohol Use Standard Drinks/Week Comments Never 0 (1 standard drink = 0.6 oz pur e alcohol) PHQ-2 Answer Date Recorded Patient Health Questionnaire-2 Score 0 12/31/2023 Comments No Sex and Gender Information Value Date Recorded Sex Assigned at Not on file Legal Sex Female 8:14 PM EDT Gender Identity Not on file Sexual Orientation Not on file Last Filed Vital Signs Vital Sign Reading Time Taken Comments Blood Pressure 138/88 12/31/2023 11:14 AM EST Pulse 58 12/31/2023 11:14 AM EST Temperature 36.8 C (98.2 F) 12/10/2023 10:19 PM EST Respiratory Rate 18 12/31/2023 11:14 AM EST Oxygen Saturation 97% 12/31/2023 11:14 AM EST Inhaled Oxygen Concentration - - Weight 150 kg (330 lb) 12/31/2023 11:14 AM EST Height 160 cm (5' 3 ) 12/31/2023 11:14 AM EST Body Mass Index 58.46 12/31/2023 11:14 AM EST Plan of Treatment Health Maintenance Due Date Last Done Comments [facility]-Bone Density Scan 1954 [facility]-Diabetes: Hemoglobin A1C 1954 [facility]-Hepatitis C Screening 1954 [facility]-Medicare Annual Wellness (AWV) 1954 [facility]-Infant/Child/Adol SDOH Screenings 1954 Diabetes: Dental Exam 1964 [facility]- SDOH Screenings 1972 [facility]-Adult SDOH Screenings 1972 [facility]-DTaP,Tdap,and Td Vaccines (1 - Tdap) 01/06/1997 01/05/1997 CT Colonography 1999 Colonoscopy 1999 FIT-DNA 1999 FIT 1999 FOBT 1999 Sigmoidoscopy 1999 [facility]-Colorectal Cancer Screening 1999 [facility]-Breast Cancer Screening 2004 [facility]-Zoster Vaccines (1 of 2) 2004 [facility]-RSV Vaccine: 60+ Years or (1 - Risk 60-74 years 1-dose series) 2014 [facility]-Pneumococcal Vaccine: 50+ Years (2 of 2 - PCV) 10/04/2020 10/04/2019 [facility]-Depression Screening 12/30/2024 12/31/2023 [id number] Vaccine (2024- season) 2025 06/04/2022, 12/25/2021, 01/23/2021, Additional history exists [facility]-Influenza Vaccine (#1) 07/02/202508/14, 07/15/2021, 07/12/2020, Additional history exists [facility]-Obesity Intervention Completed 12/31/2023 HPV Vaccines Aged Out No longer eligi ble based on patient's age to complete this topic [facility]-HIB Vaccines Aged Out No longer e ligible based on patient's age to complete this topic [facility]-Hepatitis A Vaccines Aged Out No longer eligible based on patient's age to complete this topic [facility]-IPV Vaccines Aged Out No longer e ligible based on patient's age to complete this topic [facility]-Rotavirus Vaccines Aged Out No lo nger eligible based on patient's age to complete this topic Insurance [place] MEDIC[place] Care Teams Survey Technician Relationship Specialty Start Date End Date Denice Lozano APRN [facility] [place] [phone] PCP - General Family Medicine 12/31/23
--- OUTSIDE RECORDS SUMMARY | 2025-09-07 08:46 | XMS_ITS | Referral Summary ---
Author Organization [facility] ([place], [place], [place], [place], [place]) Address [address] [place] [address] Care Team Providers Care Training Assistant Name Role Phone Unavailable Primary Care Provider [...]
--- OUTSIDE RECORDS SUMMARY | 2025-09-07 08:46 | XMS_ITS | Encounter Summary ---
Author Organization [facility] Address [address] [place] [id number] Care Team Providers Care General Utility Machine Operator Name Role Phone May Deal Primary Care Provider [phone] Source Comments This information has been disclosed to you from confidential records protectfrom disclosure by state law. You shall make no further disclosure of thisinformation without the specific, written, and informed release of theindividual to whom it pertains, or as otherwise permitted by law. A generalauthorization for the release of medical or other information is not sufficientfor the purposes of the release of HIV test results or diagnoses. [id number] Health Encounter Details Date Type Department Care Team (Late st Contact Info) Description 07/18/2022 Ophth Exam PROVIDER OPHTHALMOLOGY [address] [place] [address] [phone] Sonya Armstrong MD Social History Tobacco Use Types Packs/Day Years Used Date Smoking Tobacco: Never Smokeless Tobacco: Never Alcohol Use Standard Drinks/Week Comments Never 0 (1 standard drink = 0.6 oz pur e alcohol) AUDIT-C Answer Date Recorded Q1: How often do you have a drink containing alcohol? Never 06/28/2022 Q2: How many drinks containi ng alcohol do you have on a typical day when you are drinking? Patient does not drink Q3: How often do you have si x or more drinks on one occasion? Never 06/28/2022 Comments No Sex and Gender Information Value Date Recorded Sex Assigned at Not on file Legal Sex Female 12:11 PM EDT Gender Identity Not on file Sexual Orientation Not on file COVID-19 Exposure Response Date Recorded In the last 10 days, have yo u been in contact with someone who was confirmed or suspected to have Coronavirus/COVID-19? No / Unsure 06/28/2022 4:31 AM EDT documented as of this encounter Plan of Treatment Not on file documented as of this encounter Visit Diagnoses Not on filedocumented in this encounter Additional Health Concerns Infection Onset Date Last Indicated Resolved Time Rule Out C. difficile 07/19/2022 07/19/20222021 6:52 PM EDT documented as of this encounter Care Teams General Utility Machine Operator Relationship Specialty Start Date End Date May Deal [address] [place] [id number] PCP - General 06/29/22 documented as of this encounter
--- OUTSIDE RECORDS SUMMARY | 2025-09-07 08:46 | XMS_ITS | CCD ---
Author Organization Unknown Care Team Providers Care Logistics Engineering Manager Name Role Phone Unavailable Primary Care Provider Unavailabl e Unavailable Chronic Care Management Unavaila ble Summary Purpose DataExchange Insurance Providers Payer name Policy type / Coverage type Covered republican ID Effective Begin Date Effective End Date [facility] [id number] Unknown Unknown Family History Family History data not found Medication Administered No Medication Administered data Reason For Visit No Reason For Visit data Medical Equipment No Medical Equipment data Advance Directives No Advance Directive data
[2025-09-07 17:05] LABS: C. difficile PCR (HMH) Negative (Negative)
[2025-09-09 21:17] LABS: Pancreatic Elastase, Fecal 538 (>200)
== END 2025-09-07 23:59 | disposition home or self-care (01) ==
PROVIDERS: PCP Family Medicine; Visit Provider Family Medicine
DX: K52.9 Noninfective gastroenteritis and colitis, unspecified (principal)
CPT/HCPCS: 82653; 87493

== ENCOUNTER 2025-10-10 11:07 | Outpatient (CLI) | payer MEDICARE, MEDICAID, SELFPAY ==
[2025-10-10 11:23] LABS: Hematocrit 31.5 % (37.0-47.0); Hemoglobin 9.4 g/dL (12.2-16.2); Immature Granulocytes % 0.4 %; Mean Corpuscular HGB Conc 29.8 g/dL (31.8-35.4); Mean Corpuscular Hemoglobin 26.4 pg (27.0-31.2); Mean Corpuscular Volume 88.5 fl (81-99); Nucleated Red Blood Cells % 0 %; Platelet Count 376 K/mm3 (142-424); Red Blood Count 3.56 M/mm3 (4.20-5.40); Red Cell Distribution Width-SD 52.9 fL; White Blood Count 9.9 K/mm3 (4.8-10.8)
[2025-10-10 11:38] LABS: Alanine Aminotransferase 12 U/L (12-78); Albumin Level 3.7 g/dl (3.5-5.0); Albumin/Globulin Ratio 1.0 (1.1-1.8); Alkaline Phosphatase 101 U/L (38-126); Anion Gap 12.4 mEq/L (5-15); Aspartate Amino Transferase 21 U/L (14-36); Bilirubin,Total 0.6 mg/dl (0.2-1.3); Blood Urea Nitrogen 26 mg/dl (7-17); Calcium 9.0 mg/dl (8.4-10.2); Carbon Dioxide 25 mmol/L (22.0-30.0); Chloride 105 mmol/L (98-107); Creatinine,Serum 1.40 mg/dl (0.52-1.04); Estimated Glomerular Filt Rate 37 ml/min (>60); GFR (African American) 45 ML/MIN (>60); Globulin 3.6 g/dL (1.3-3.2); Glucose 226 mg/dl (74-100); Iron 47 ug/dL (37-170); Potassium 4.4 mmoL/L (3.5-5.1); Sodium 138 mmol/L (136-145); Total Protein,Serum 7.3 g/dl (6.3-8.2)
[2025-10-10 11:49] LABS: Total Iron Binding Capacity 341 ug/dL (265-497)
[2025-10-10 12:14] LABS: Ferritin 55.0 ng/ml (11.1-264)
[2025-10-11 04:41] LABS: Hemoglobin A1C 7.3 % (4.0-6.0)
== END 2025-10-10 23:59 | disposition home or self-care (01) ==
LOC: LAB.DROPOF 11:08
PROVIDERS: PCP Family Medicine; Visit Provider Family Medicine
DX: D64.9 Anemia, unspecified (principal); E11.9 Type 2 diabetes mellitus without complications
CPT/HCPCS: 36415; 80053; 82728; 83036; 83540; 83550; 85025